=== PATIENT | male | born 1950 | race Caucasian/White ===

== ENCOUNTER 2019-12-14 16:34 | Emergency (ER) | payer OTHER ==
[~2019-12-14] VITALS: Ht 188 cm; Wt 97.1 kg
--- OUTSIDE RECORDS SUMMARY | ~2019-12-14 | XMS | Encounter Summary ---
Demographics + + + | Address | [address] | | | [place] [address] | + + + | Home Phone | | + + + | Preferred Language | Unknown | + + + | Marital Status | | + + + | Buddhism Affiliation | Unknown | + + + | Race | Unknown | + + + | Ethnic Group | Unknown | + + + Author + + + | Author | [facility] | | | and [place] | + + + | Organization | [facility] | | | and [place] | + + + | Address | Unknown | + + + | Phone | Unavailable | + + + Support + + +---------+ + | Name | Relationship | Address | Phone | + + +---------+ + | Yary Solis | ECON | Unknown | | + + +---------+ + | Shwetha Rhoades | ECON | Unknown | | + + +---------+ + Care Team Providers + +------+ + | Care Interface Developer Name | Role | Phone | + +------+ + | Tereza Turner MD | PCP | | + +------+ + Reason for Visit + + + | Reason | Comments | + + + | Follow-up, Office | 2 month | | Visit | | + + + Encounter Details +--------+---------+ + + + | Date | Type | Department | Care Team | Description | +--------+---------+ + + + | 03/05/ | Office | [facility] | Arleth Cabral | Paroxysmal atrial | | 2019 | Visit | CARDIOLOGY [place] | [address] | fibrillation (HCC) | | | | [address] | [address] | (Primary Dx); Mixed | | | | [address] | [place] [address] | hyperlipidemia; | | | | [place], [place] | [phone] | Agatston coronary | | | | [address] | | artery calcium score | | | | [phone] | | greater than 400; | | | | | | Ascending aorta | | | | | | dilatation (HCC); | | | | | | Essential | | | | | | hypertension; | | | | | | Intermittent | | | | | | palpitations; | | | | | | Bradycardia by | | | | | | electrocardiogram | +--------+---------+ + + + Social History + +-------+ +--------+------+ | Tobacco Use | Types | Packs/Day | Years | Date | | | | | Used | | + +-------+ +--------+------+ | Never Smoker | | | | | + +-------+ +--------+------+ + +---+---+---+ | Smokeless Tobacco: | | | | | Former User | | | | + +---+---+---+ + + +---------+ + | Alcohol Use | Drinks/Week | oz/Week | Comments | + + +---------+ + | Not Asked | 1 Cans of beer | 1.0 | Alcoholic | | | | | Drinks/day: | | | | | beer/wine/whiskey, | | | | | 1-2 3 times per | | | | | week | + + +---------+ + + + + | Sex Assigned at | Date Recorded | | | | + + + | Not on file | | + + + documented as of this encounter Last Filed Vital Signs + + + + + | Vital Sign | Reading | Time Taken | Comments | + + + + + | Blood Pressure | 128/74 | 03/05/2019 10:54 AM | | | | | PDT | | + + + + + | Pulse | 56 | 03/05/2019 10:54 AM | | | | | PDT | | + + + + + | Temperature | - | - | | + + + + + | Respiratory Rate | - | - | | + + + + + | Oxygen Saturation | 98% | 03/05/2019 10:54 AM | | | | | PDT | | + + + + + | Inhaled Oxygen | - | - | | | Concentration | | | | + + + + + | Weight | 98.9 kg (218 lb) | 03/05/2019 10:54 AM | | | | | PDT | | + + + + + | Height | 188 cm (6' 2") | 03/05/2019 10:54 AM | | | | | PDT | | + + + + + | Body Mass Index | 27.99 | 03/05/2019 10:54 AM | | | | | PDT | | + + + + + documented in this encounter Patient Instructions Patient Instructions Arleth Cabral FNP - 03/05/2019 11:00 AM PDTI have ordered you a 2 week event monitor , and should be put on here in [place] in about 7-10 days, I made no changes to medications See me back in 6 weeks Please bring your medication bottles to all clinic visits to help us maintain safe care for you, and ensure accurate medication record documented in this encounter Progress Notes Arleth Cabral FNP - 03/05/2019 11:00 AM PDTFormatting of this note might be differe nt from the original. Date of visit: 03/06/2019 Primary Care Physician: Tereza Turner MD CHIEF COMPLAINT: Chief Complaint Patient presents with Follow-up, Office Visit 2 month HISTORY OF PRESENT ILLNESS: Mr. Milan Solis is a 68 -year-old man who is here today for 2 month follow up on rasheeda ycardia after stopping metoprolol. He has a history of atrial fibrillation s/p cardioversion 04/2016 and maintained in SR sin ce with flecainide,hypertension, hyperlipidemia, coronary artery disease with a positive CT coronary calcium score of 509 with significant calcification to his RCA and moderate calcif ication to his left circumflex. His [id number] VASC score is 2 ( age HTN) and not on Eliquis since he has maintained sinus rh ythm, but remains anticoagulated on aspirin . I saw him last 01/08/2019 when I stopped his metoprolol XL 12.5 mg for ongoing bradycardia, and followed up with him about the results of his CMP and lipid panel, which are detailed christy cotter. His current and previous testing are detailed below. Today, I reviewed all previous documentation available to me in electronic medical recor d and from external sources. He reports today that he feels well, but since he has stopped metoprolol, he notices 3-4 e pisodes in the last month where he feels his heart beating much more strongly, but denies an y increase in rate, or any palpitations otherwise, or any accompanying symptoms, and seems t o occur at rest, but not with exertion. He has difficulty describing the sensation other th an saying it is a much stronger heartbeat than he normally has, and bothersome. He reports he has less frequent and more transient episodes of orthostatic lightheadedn ess when he bends over for too long since he has been off metoprolol., He denies any ch est pain, central or peripheral edema, dyspnea, dizziness,or syncope. He also denies any si gns or symptoms of stroke or transient ischemic attack. He denies any ER visits or hospitalization since last seen. He brought pictures of his medications to clinic today , and I reviewed personally. He reports he is drinking 1-2 beers per week, and caffeine consumption mild to moderat e, and has trying to be more active, and has noticed he has felt better. He also denies any use of marijuana since her noticed that it gave him palpitations previously. 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 He reports today that he is thinking of retiring next year. REVIEW OF SYSTEMS: Negative except for pertinent items noted in HPI. Constitutional: Denies fatigue or unexplained weight loss. Appetite is good. Weight is st able. Denies night sweats fevers or chills HENT: Denies nosebleeds. Denies hearing problems. Denies dysphagia Eyes: Denies visual disturbance or double vision. Denies history of cataracts or glaucoma or macular degeneration. Respiratory/Sleep:: History allergic rhinitis, hay fever Denies cough and shortness of jero th. Denies hemoptysis or excessive sputum production. Denies snoring, orthopnea, PND. Cardiovascular: Denies chest pain, palpitations and leg swelling. Denies history of rheuma tic fever. Denies claudication . Gastrointestinal: History of GERD, on ranitidine. Denies history of gastroesophageal reflu x disease . Denies nausea, vomiting, abdominal pain and blood in stool. Genitourinary: History of prostatectomy, prostate cancer no radiation or chemotherapy. Den ies hematuria. Musculoskeletal: C/o joint pain Denies myalgias, back pain Skin: Denies color change. Denies rash or lesions Neurological: Denies history of stroke/Transient ischemic attack.Denies history of seizures . Denies dizziness, syncope and numbness. Denies focal motor or sensory deficits Hematological/Oncology Does not bruise/bleed easily. 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 Denies excessive thirst or hunger. Psychiatric/Behavioral: The patient denies any history of depression or anxiety or other ps ychiatric illness. Vaccines: Current on 2018 flu vaccine. Current on pneumonia vaccine. Habits/Social : Denies history of smoking. EtOH use beer occasionally .Drinks 1 servings of caffeine (iced tea/hot tea) daily . Denies recreational or illicit drug use Exercises with a cane, golf and tolerates. 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 Outpatient Medications Prior to Visit Medication Sig Dispense Refill aspirin 81 MG tablet Take 81 mg by mouth daily. atorvaSTATin (LIPITOR) 10 mg tablet Take 1 tablet by mouth nightly. (Patient taking dif ferently: Take 20 mg by mouth nightly.) 90 tablet 3 esomeprazole (NEXIUM) 20 mg capsule Take 20 mg by mouth every morning (before breakfast ). flecainide (TAMBOCOR) 100 mg tablet TAKE 1 TABLET TWICE A DAY 180 tablet 3 nitroglycerin (NITROSTAT) 0.[address] 1 tablet under the tongue every 5 (fiv e) minutes as needed for Chest pain. 25 tablet 3 raNITIdine (ZANTAC) 75 MG tablet Take 150 mg by mouth 2 (two) times daily. Takes 75 mg At night , and 150 mg qhs (Patient taking differently: Take 150 mg by mouth as needed.) No facility-administered medications prior to visit. PHYSICAL EXAM: Wt Readings from Last 3 Encounters: 03/05/19 98.9 kg (218 lb) 04/19/16 97.1 kg (214 lb) 07/20/15 100.8 kg (222 lb 3.2 oz) Temp Readings from Last 3 Encounters: 04/19/16 36.8 C (98.2 F) BP Readings from Last 3 Encounters: 03/05/19 128/74 04/19/16 129/72 07/20/15 134/68 Pulse Readings from Last 3 Encounters: 03/05/19 56 04/19/16 60 07/20/15 64 Vital signs: 01/08/2019 wt: 221 Lbs. BP: 134/68 . HR. 47 Vital signs: 06/30/2018 wt: 218 Lbs. BP: 134/68 . HR. 46 Vital signs: 08/12/2017 wt: 222 Lbs. BP: 122/78 . HR. 76. GENERAL: Well developed, well nourished, in no distress. Appears approximately stated age . HEENT: Normocephalic, atraumatic. EYES: PERRL, EOM normal. MOUTH: Oral mucosae moist, dentition adequate, no lesions noted NECK: No JVD, lymphadenopathy, thyromegaly, bruits. Carotid pulses are 2+ bilaterally LUNGS/CHEST: Clear bilaterally, with no rales, rhonchi or wheezing noted, respirations unl abored HEART: Nondisplaced PMI, slow rate and rhythm, S1, S2 normal. No murmurs, rubs or gallops noted. ABDOMEN: Soft, nontender, no organomegaly, masses or bruits. Bowel sounds are normal in a ll 4 quadrants. The abdominal aortic pulsation is not palpable. EXTREMITIES: No edema. Radial pulses 2+ bilaterally. Femoral pulses are 2+ bilaterally wi thout bruits. DP and PT pulses are 2+ bilaterally. No clubbing. SKIN: Warm and dry, capillary refill is normal, no lesions. NEUROLOGIC: Awake, alert and oriented x 3. No focal motor or sensory deficits. PSYCHIATRIC: Appropriate, affect appears normal DATA: Blood tests: No results found for: WBC, RBC, HGB, HCT, PLT No results found for: NA, K, CL, CO2, ANIONGAP, GLUF, BUN, CREATININE, BCR, EGFR No results found for: CHOL, TRIG, LDL, LDL, GLUF No results found for: BNP, TSH, CRP No results found for: TOTEPI CT Coronary Calcium: 06/07/2015: Calcium Score 509. Significant calcification in the RCA, moderate calcification LCx. Last Stress Test, 08/15/2015 ([facility]): Lexiscan, perfusion images NML, LVEF 60%. ECHO: Last Echo: 06/04/2018: ([facility]): Resting bradycardia. Technically adequate study. EF 60-65 p ercent. LV normal in size and wall thickness. No regional wall motion abnormalities. Norm al diastolic function for age. RV normal in size and function. Normal size atria. Aortic valve trileaflet, no aortic regurgitation or stenosis. Mitral valve normal, no MR. Tricusp id valve normal, pulmonary pressures not assessed due to absence of TR jet. Trace PI. No s ignificant valvular pathology. No pericardial or pleural effusion. IVC WNL, CVP 0-5. Asce nding aorta is dilated measuring up to 4.2 cm Echo, 04/04/2016: LVEF 60-65%, moderate LAE (49mm PSLAx), trace AI, trace MR, trace TR, tr raphael PI, Aortic root 39mm, atherosclerosis present. EKG/EVENT MONITOR ECG,03/28/2016 (Dr Moore): A fib (80bpm), LAFB, incomplete RBBB pattern, non-spec ST-T [place] es. EK05/07: Sinus bradycardia with bifascicular block Rate 56 bpm, NY 184 ms, QRS 1 64 ms, QTC 480 ms EK02/07: Sinus bradycardia, left axis deviation, nonspecific IV block. Rate 45 bpm , NY 202 ms, QRS 126 ms, QTC 430, tracing reviewed by az EK08/12/2017: ( flecainide 100 mg BID,Toprol-XL 12.5 mg daily) Normal sinus rhythm, left axis deviation, nonspecific IV block. Rate 61 bpm, NY 188 ms, QRS 1:30 milliseconds, QTC 46 9 ms, tracing personally reviewed by az EK06/30/2018:( flecainide 100 mg BID, Toprol-XL 25 mg daily )Sinus bradycardia, nonspecif ic IV block. Rate 46 bpm, NY 194 ms, QRS 130 ms, QTC 427 ms tracing personally reviewed by az EK01/08/2019:(flecainide 100 mg BID, Toprol-XL 12.5 mg daily ) sinus bradycardia, nonspec ific IV conduction delay. First degree AV block. Rate 47 bpm, NY 204 ms, QRS 122 ms, QTC 4 19 Hernandez personally reviewed by me, and compared to EKG performed in June, now has first- degree AV block, otherwise similar morphology EK03/05/2019: sinus bradycardia nonspecific IV block, rate 51 bpm, NY 192 ms, QRS 130 ms , QTC 457 ms, tracing personally reviewed by me, and compared to previous EKG performed in tashi2018, first-degree AV block has resolved, and improved heart rate. LABS: Labs: 03/28/2016 liver enzymes WNL, sodium 137, potassium 3.9, BUN 17, creatinine 0.9, GFR 35. Magnesium 1.9, TSH 3.03. CK 65 hemoglobin 16.5, hematocrit 48.7, platelets 177 Labs: 2015: Total cholesterol 119, triglycerides 76, LDL 65, VLDL 15, ratio 3.1, non-HD L cholesterol 80. Sodium 137, potassium 3.9, chloride 104, glucose 94, BUN 17, creatinine 0 .73, GFR 108, AST 21, ALT 38, alk phos 53, total bilirubin 1.4. WBC 5.9, hemoglobin 16.3, h ematocrit 47.6, platelets 152 ESR 0 Labs: 2017: Lipids: (atorvastatin 10 mg) Cholesterol 110, triglycerides 85, HDL 38.5, LDL 55, VLDL 17, ratio 2.9, non-HDL cholesterol 72. CMP: Sodium 137, potassium 4, chloride 99, glucose 90, BUN 16, creatinine 0.88, AST 20, ALT 32, alk phos 57, total bilirubin 1.2, GFR 87, albumin 4.3. PSA <0.014. CBC: WBC 5.7, hemoglobin 16.1, hematocrit 40.7, platelets 154 Labs: 01/08/2019: Lipids: (Atorvastatin 10 mg): Cholesterol 127, triglycerides 269, HDL 38, LDL 35. CMP: Sodium 139, potassium 4, chloride 105, glucose 85, BUN 17, creatinine 0.78, T 17, ALT 18, alk phos 55, total bili 1.1, GFR 99, albumin 3.9. CBC: WBC 6.4, RBC 5.22, hem oglobin 15.7, hematocrit 46.7, platelets 188. @ASSESSMENTPLANBEGIN@ ASSESSMENT & PLAN: He was here today for 2 month follow up on bradycardia after stopping metoprolol. He has problems as detailed below. His EKG performed in the clinic today again shows improved sinus bradycardia at 51 bpm ,with resolution of first degree AV block , and his QTC is acceptable for his flecainide t herapy He is asymptomatic for any dizziness., but reports episodes of very strong heartbeats, whi aleksander he finds difficult to describe, but finds bothersome, but thinks rate is regular, and no other symptoms besides increased anxiety. I discussed the results of his EKG in detail with him and he remains bradycardic without metoprolol, with symptoms as described I will order an event monitor, and send him to electrophysiology for further consultation if indicated after I see results . I made no changes to cardiac medications today, and he should continue Atorvastatin 20 mg qhs for hyperlipidemia, aspirin 81 mg daily for coronary artery disease,and flecainide 100 mg bid to maintain sinus rhythm. I may need to start him on losartan if blood pressure increases without metoprolol, but wi ll wait until I see him back.. He has remained off Eliquis as he has maintained sinus rhythm, but we have previously dis cussed he would need to go back on it for atrial fibrillation. I will continue to monitor ascending aorta dilation with serial Echo's , and would also or loraine him a baseline abdominal US for AAA screening when I ordered his Echo next year in 2019. Is scheduled to be set up on his 2-week event monitor on March 23, and I will follow-up wi th him on March 27 about the results. I will order his updated echo, and baseline abdominal ultrasound for AAA screening whe n I see him back. 1. Paroxysmal atrial fibrillation (HCC) 2. Mixed hyperlipidemia 3. Agatston coronary artery calcium score greater than 400 4. Ascending aorta dilatation (HCC) 5. Essential hypertension 6. Intermittent palpitations 7. Bradycardia by electrocardiogram Orders Placed This Encounter Procedures ECG 12 lead Event monitor - 2 week The following portions of the patient's history were personally reviewed by me and updated as appropriate: EKG tracings, other specialty provider and PCP notes,any Hospital admission and discharge summaries, any ER records , current and previous cardiac testing and procedure reports and d keyur, , medication bottle pictures brought to visit today personally reviewed by me. Allergies, current medications.labs Family history, past medical history, past social history, past surgical history. Problem list. Talha ANGEL [facility] 03/06/2019 docume nted in this encounter Plan of Treatment +--------+---------+ + + + | Date | Type | Specialty | Care Team | Description | +--------+---------+ + + + | 02/23/ | Office | Cardiology | Srinivas Robledo, | | | 2019 | Visit | | MD [address] | | | | | | [address] [place], [place] | | | | | | [id number] | | | | | | | | +--------+---------+ + + + + +------+--------+ + + | Name | Type | Priori | Associated Diagnoses | Order Schedule | | | | ty | | | + +------+--------+ + + | Event monitor - 2 | ECG | Routin | Paroxysmal atrial | Expected: | | week | | e | fibrillation (HCC) | 03/12/2019, Expires: | | | | | Intermittent | 03/05/2020 | | | | | palpitations | | | | | | Bradycardia by | | | | | | electrocardiogram | | + +------+--------+ + + documented as of this encounter Procedures + +--------+ + + + | Procedure Name | Priori | Date/Time | Associated Diagnosis | Comments | | | ty | | | | + +--------+ + + + | ECG 12 LEAD | Routin | 03/05/2019 | Paroxysmal atrial | Results for this | | | e | 11:03 AM | fibrillation (HCC) | procedure are in the | | | | PDT | Mixed hyperlipidemia | results section. | | | | | [place]at[place] coronary | | | | | | artery calcium score | | | | | | greater than 400 | | | | | | Ascending aorta | | | | | | dilatation (HCC) | | | | | | Essential | | | | | | hypertension | | + +--------+ + + + documented in this encounter Results ECG 12 lead (03/05/2019 11:03 AM PDT) + + + + + + | Component | Value | Ref Range | Performed | Pathologist | | | | | At | Signature | + + + + + + | VENTRICULAR | 51 | BPM | [facility] | | | RATE EKG | | | | | + + + + + + | ATRIAL RATE | 51 | BPM | [facility] | | + + + + + + | P-R | 192 | ms | [facility] | | | INTERVAL | | | | | + + + + + + | QRS | 130 | ms | [facility] | | | DURATION | | | | | + + + + + + | Q-T | 496 | ms | [facility] | | | INTERVAL | | | | | + + + + + + | Q-T | 457 | ms | [facility] | | | INTERVAL | | | | | | (CORRECTED) | | | | | + + + + + + | P WAVE AXIS | 52 | degrees | [facility] | | + + + + + + | QRS AXIS | -64 | degrees | [facility] | | + + + + + + | T AXIS | 23 | degrees | [facility] | | + + + + + + | INTERPRETAT | Please refer to | | [facility] | | | ION TEXT | Providers office visit | | | | | | note for Providers | | | | | | Interpretation.Confirmed | | | | | | by [facility] Read Only, | | | | | | [facility] ([id number]), | | | | | | editorial project manager Jake Hernadez | | | | | | ([id number]) on 03/05/2019 | | | | | | 3:16:33 PM | | | | + + + + + + + + | Specimen | + + | | + + + + + | Narrative | Performed At | + + + | | | + + + + +---------+ + + | Performing | Address | City/State/Zipcode | Phone Number | | Organization | | | | + +---------+ + + | [facility] | | | | + +---------+ + + documented in this encounter Visit Diagnoses + + | Diagnosis | + + | Paroxysmal atrial fibrillation (HCC) - Primary Atrial fibrillation | + + | Mixed hyperlipidemia | + + | [place]at[place] coronary artery calcium score greater than 400 Nonspecific (abnormal) | | findings on radiological and other examination of other intrathoracic organs | + + | Ascending aorta dilatation (HCC) Thoracic aortic ectasia | + + | Essential hypertension Unspecified essential hypertension | + + | Intermittent palpitations | + + | Bradycardia by electrocardiogram Other specified cardiac dysrhythmias | + + documented in this encounter
--- OUTSIDE RECORDS SUMMARY | ~2019-12-14 | XMS | Encounter Summary ---
Demographics + + + | Address | [address] | | | [place] [address] | + + + | Home Phone | | + + + | Preferred Language | Unknown | + + + | Marital Status | | + + + | Rastafari Affiliation | Unknown | + + + | Race | Unknown | + + + | Ethnic Group | Unknown | + + + Author + + + | Author | [facility] | | | and [place] | + + + | Organization | [facility] | | | [...] Team Providers + +------+ + | Care Piece Marker [employer] Name | Role | Phone | + +------+ + | Tereza Turner MD | PCP | | + +------+ + Reason for Visit +--------+ + | Reason | Comments | +--------+ + | Other | 2 week event monitor | +--------+ + Encounter Details +--------+ + + + + | Date | Type | Department | Care Team | Description | +--------+ + + + + | 03/23/ | Clinical | [facility] | Arleth Cabral | Paroxysmal atrial | | 2019 | Support | CARDIOLOGY [place] | [address] | fibrillation (HCC); | | | | [address] | [address] | Intermittent | | | | [address] | [place] [address] | palpitations; | | | | [place], [place] | [phone] | Bradycardia by | | | | [address] | | electrocardiogram | | | | [phone] | | | +--------+ + + + + Social History + +-------+ [...] + + documented as of this encounter Progress Shy Kingsley CMA - 03/23/2019 2:30 PM PDT2 week cardiac event monitor placed on patie nt. EOB/Billing information discussed. Instructions given and understood.Electronically sign ed by Shy Leroy CMA at 03/23/2019 2:46 PM PDTdocumented in this encounter Plan of Treatment +--------+---------+ + + + | Date | Type | Specialty | Care Team | Description | +--------+---------+ + + + | 02/23/ | Office | Cardiology | Srinivas Robledo, | | | 2019 | Visit | | MD [address] | | | | | | [place] | | | | | | [address] | | | | | | | | +--------+---------+ + + + documented as of this encounter Visit Diagnoses + + | Diagnosis | + + | Paroxysmal atrial fibrillation (HCC) Atrial fibrillation | + + | Intermittent palpitations | + + | Bradycardia by electrocardiogram Other specified cardiac dysrhythmias | + + documented in this encounter"
--- OUTSIDE RECORDS SUMMARY | ~2019-12-14 | XMS | Encounter Summary ---
Demographics + + + | Address | [address] | | | [place] [address] | + + + | Home Phone | | + + + | Preferred Language | Unknown | + + + | Marital Status | | + + + | Quaker Affiliation | Unknown | + + + | Race | Unknown | + + + | Ethnic Group | Unknown | + + + Author + + + | Author | [facility] | | | and [place] | + + + | Organization | [facility] | | | [...] Team Providers + +------+ + | Care Security Sales Consultant Name | Role | Phone | + +------+ + | Tereza Turner MD | PCP | | + +------+ + Encounter Details +--------+ + + + + | Date | Type | Department | Care Team | Description | +--------+ + + + + | 01/30/ | Orders Only | [facility] | Arleth Cabral | Paroxysmal atrial | | 2019 | | CARDIOLOGY [place] | [address] | fibrillation (HCC); | | | | [address] | [address] | Atherosclerotic | | | | [address] | [place] [address] | heart disease of | | | | [place], [place] | [phone] | [place] coronary | | | | [address] | | artery without | | | | [phone] | | angina pectoris; | | | | | | Mixed hyperlipidemia | +--------+ + + + + Social History + +-------+ +--------+------+ | Tobacco Use | Types | Packs/Day | Years | Date | | | | | Used | | + +-------+ +--------+------+ | Never Smoker | | | | | + +-------+ +--------+------+ + + + | Sex Assigned at | Date Recorded | | | | + + + | Not on file | | + + + documented as of this encounter Plan of Treatment +--------+---------+ + + + | Date | Type | Specialty | Care Team | Description | +--------+---------+ + + + | 02/23/ | Office | Cardiology | Srinivas Robledo, | | | 2019 | Visit | | MD [address] | | | | | | [place] | | | | | | [address] | | | | | | | | +--------+---------+ + + + + +------+--------+ + + | Name | Type | Priori | Associated Diagnoses | Order Schedule | | | | ty | | | + +------+--------+ + + | Comprehensive | Lab | Routin | Paroxysmal atrial | Expected: | | Metabolic Panel | | e | fibrillation (HCC) | 06/30/2018, Expires: | | | | | Atherosclerotic | 12/29/2019 | | | | | heart disease of | | | | | | [place] coronary | | | | | | artery without | | | | | | angina pectoris | | | | | | Mixed hyperlipidemia | | + +------+--------+ + + | Lipid Panel | Lab | Routin | Mixed | Expected: | | | | e | hyperlipidemia | 06/30/2018, Expires: | | | | | | 12/29/2019 | + +------+--------+ + + documented as of this encounter Visit Diagnoses + + | Diagnosis | + + | Paroxysmal atrial fibrillation (HCC) Atrial fibrillation | + + | Atherosclerotic heart disease of [place] coronary artery without angina pectoris | | Coronary atherosclerosis of [place] coronary artery | + + | Mixed hyperlipidemia | + + documented in this encounter"
--- OUTSIDE RECORDS SUMMARY | ~2019-12-14 | XMS | Encounter Summary ---
Demographics + + + | Address | [address] | | | [place] [address] | + + + | Home Phone | | + + + | Preferred Language | Unknown | + + + | Marital Status | Single | + + + | Presybeterian Affiliation | Unknown | + + + | Race | White | + + + | Ethnic Group | Not or | + + + Author + + + | Author | [facility] | + + + | Organization | [facility] | + + + | Address | Unknown | + + + | Phone | Unavailable | + + + Support + + +---------+ + | Name | Relationship | Address | Phone | + + +---------+ + | None None | ECON | Unknown | Unavailable | + + +---------+ + | Yary Solis | ECON | Unknown | | + + +---------+ + Care Team Providers + +------+ + | Care Marketing Planner Name | Role | Phone | + +------+ + PCP | Unavailable | + +------+ + Encounter Details +--------+ + + + + | Date | Type | Department | Care Team | Description | +--------+ + + + + | 12/01/ | Joint Maker Machine | Urology at [facility] | [place], | Malignant neoplasm | | 2012 | | [address] | Brandon Hinton MD | of prostate (HCC) | | | | Mailcode: [place] | [address] | (Primary Dx) | | | | for Health and | [facility] [place], | | | | | [facility] | [place] [address] | | | | | [place], [place] | [phone] | | | | | [address] | | | | | | [phone] | | | +--------+ + + + + Social History + +-------+ +--------+------+ | Tobacco Use | Types | Packs/Day | Years | Date | | | | | Used | | + +-------+ +--------+------+ | Never Assessed | | | | | + +-------+ +--------+------+ + + + | Sex Assigned at | Date Recorded | | | | + + + | Not on file | | + + + + + + + | Job Start Date | Occupation | Industry | + + + + | Not on file | Not on file | Not on file | + + + + + + + + | Travel History | Travel Start | Travel End | + + + + + + | No recent travel history available. | + + documented as of this encounter Plan of Treatment Not on filedocumented as of this encounter Procedures + +--------+ + + + | Procedure Name | Priori | Date/Time | Associated Diagnosis | Comments | | | ty | | | | + +--------+ + + + | PATHOLOGY CONSULT - | Routin | 11/13/2012 | Malignant neoplasm | Results for this | | REVIEW OUTSIDE | e | | of prostate (HCC) | procedure are in the | | SLIDES | | | | results section. | + +--------+ + + + documented in this encounter Results PATHOLOGY CONSULT - REVIEW OUTSIDE [facility]ID[facility] (11/13/2012) + + + + + + | Component | Value | Ref Range | Performed | Pathologist | | | | | At | Signature | + + + + + + | PATHOLOGY | SOURCE OF SPECIMEN:A | | [facility] | | | CONSULT - | Multiple specimens, A to | | DEPARTMENT | | | SLIDES | F, Q to R | | OF | | | | Materials | | PATHOLOGY | | | | Received:Referring | | | | | | Institution: [facility] | | | | | | [facility] [place], | | | | | | [place] [id number] | | | | | | Accession Number: | | | | | | [id number] | | | | | | Collection Date: | | | | | | 11/13/2012Sublabeled | | | | | | | | | | | | H&E IHCA | | | | | | to F, Q to R | | | | | | 8 | | | | | | 1 Final | | | | | | Pathologic | | | | | | Diagnosis:Prostate, | | | | | | biopsies ([id number], | | | | | | 11/13/2012, sublabeled | | | | | | A-F and Q-R, | | | | | | [employer], [place] | | | | | | City, | | | | | | [place]):Prostate, left | | | | | | base, needle core | | | | | | biopsy (sublabeled A): | | | | | | - Small focus of | | | | | | atypical glands | | | | | | suspicious but not | | | | | | diagnostic | | | | | | ofadenocarcinoma, see | | | | | | note Note: | | | | | | Outside reviewed | | | | | | immunohistochemical | | | | | | stains CK-903, p63, and | | | | | | [id number](racemase) confirm | | | | | | results as suspicious | | | | | | but not diagnostic | | | | | | ofadenocarcinoma of the | | | | | | prostate. | | | | | | Prostate, left mid, | | | | | | needle core biopsy | | | | | | (sublabeled B): - | | | | | | Prostate with no | | | | | | evidence of prostatic | | | | | | adenocarcinomaProstate, | | | | | | left apex, needle core | | | | | | biopsy (sublabeled C): | | | | | | - Prostatic | | | | | | adenocarcinoma, [place] | | | | | | score 3 + 4 = 7 - | | | | | | Adenocarcinoma is | | | | | | approximately 30% of the | | | | | | total biopsy length, | | | | | | andadenocarcinoma is | | | | | | approximately 0.7 cm in | | | | | | lengthProstate, right | | | | | | base, needle core biopsy | | | | | | (sublabeled D): - | | | | | | No evidence of | | | | | | malignancy - Focal | | | | | | atrophy and chronic | | | | | | inflammationProstate, | | | | | | right mid, right apex, | | | | | | needle core biopsies | | | | | | (sublabeled E and F): | | | | | | - Benign prostate | | | | | | tissue with focal | | | | | | chronic inflammation and | | | | | | noevidence of | | | | | | malignancyProstate, R | | | | | | transition zone, needle | | | | | | core biopsy (sublabeled | | | | | | R): - Benign | | | | | | prostate tissue, focal | | | | | | chronic | | | | | | inflammationProstate, L | | | | | | transition zone, needle | | | | | | core biopsy (sublabeled | | | | | | Q): - Benign | | | | | | prostate tissue with | | | | | | focal chronic | | | | | | inflammation Case | | | | | | seen by:Macho Owusu, | | | | | | MRhiannon/pathologistThe | | | | | | slides will be returned | | | | | | at a later | | | | | | dateT:12/09/2012/rdl | | | | | | Clinical History:The | | | | | | patient is a 62-year-old | | | | | | man with reported | | | | | | outside PSA of 6.89. | | | | | | My electronic | | | | | | signature indicates that | | | | | | I have personally | | | | | | reviewed alldiagnostic | | | | | | slides, the gross and/or | | | | | | microscopic portion of | | | | | | thisreport and | | | | | | formulated the final | | | | | | diagnosis. | | | | | | Rendering Diagnostician: | | | | | | Macho Owusu | | | | | | MRhiannonPathologistElectroni | | | | | | omar Signed 12/09/2012 | | | | | | 12:55PM | | | | + + + + + + + + | Specimen | + + | | + + + + + + + | Performing | Address | City/State/Zipcode | Phone Number | | Organization | | | | + + + + + | [facility] | [address] | [place] [address] | | | PATHOLOGY | [address] | | | + + + + + documented in this encounter Visit Diagnoses + + | Diagnosis | + + | Malignant neoplasm of prostate (HCC) - Primary Malignant neoplasm of prostate | + + documented in this encounter"
--- OUTSIDE RECORDS SUMMARY | ~2019-12-14 | XMS | Encounter Summary ---
Demographics + + + | Address | [address] | | | [place] [address] | + + + | Home Phone | | + + + | Preferred Language | Unknown | + + + | Marital Status | | + + + | Anabaptist Affiliation | Unknown | + + + | Race | Unknown | + + + | Ethnic Group | Unknown | + + + Author + + + | Author | [facility] | | | and [place] | + + + | Organization | [facility] | | | [...] Team Providers + +------+ + | Care Bench Lathe Operator Name | Role | Phone | + +------+ + | Tereza Turner MD | PCP | | + +------+ + Encounter Details +--------+ + + + + | Date | Type | Department | Care Team | Description | +--------+ + + + + | 06/26/ | Orders Only | [facility] | Arleth Cabral | | | 2018 | | CARDIOLOGY [place] | [address] | | | | | [address] | [address] | | | | | [address] | [place] [address] | | | | | [place] | [phone] | | | | | [address] | | | | | | [phone] | | | +--------+ + + + [...] [place] | | | | | | [address] | | | | | | | | +--------+---------+ + + + documented as of this encounter Visit Diagnoses Not on filedocumented in this encounter"
--- OUTSIDE RECORDS SUMMARY | ~2019-12-14 | XMS | Encounter Summary ---
Demographics + + + | Address | [address] | | | [place] [address] | + + + | Home Phone | | + + + | Preferred Language | Unknown | + + + | Marital Status | | + + + | Yazidism Affiliation | Unknown | + + + | Race | Unknown | + + + | Ethnic Group | Unknown | + + + Author + + + | Author | [facility] | | | and [place] | + + + | Organization | [facility] | | | [...] Team Providers + +------+ + | Care Burling And Joining Supervisor Name | Role | Phone | + +------+ + | Tereza Turner MD | PCP | | + +------+ + Encounter Details +--------+ + + + + | Date | Type | Department | Care Team | Description | +--------+ + + + + | 04/19/ | Orders Only | [facility] | Srinivas Robledo, | | | 2016 | | CARDIOLOGY [place] | MD [address] | | | | | [address] | [place], [place] | | | | | [place], [place] | [address] | | | | | [address] | | | | | | [phone] | | | +--------+ + + + [...] [place] | | | | | | [address] | | | | | | | | +--------+---------+ + + + documented as of this encounter Visit Diagnoses Not on filedocumented in this encounter"
--- OUTSIDE RECORDS SUMMARY | ~2019-12-14 | XMS | Encounter Summary ---
Demographics + + + | Address | [address] | | | [place] [address] | + + + | Home Phone | | + + + | Preferred Language | Unknown | + + + | Marital Status | | + + + | Baptism Affiliation | Unknown | + + + | Race | Unknown | + + + | Ethnic Group | Unknown | + + + Author + + + | Author | [facility] | | | and [place] | + + + | Organization | [facility] | | | and [place] | + + + | Address | Unknown | + + + | Phone | Unavailable | + + + Support + + +---------+ + | Name | Relationship | Address | Phone | + + +---------+ + | aYry Solis | ECON | Unknown | | + + +---------+ + | Shwetha Rhoades | ECON | Unknown | | + + +---------+ + Care Team Providers + +------+ + | Care Freight Broker Agent Name | Role | Phone | + +------+ + PCP | Unavailable | + +------+ + Encounter Details +--------+ + + + + | Date | Type | Department | Care Team | Description | +--------+ + + + + | 04/19/ | Hospital | [facility] | Conversion | Paroxysmal atrial | | 2016 | Encounter | CENTER CV INTRA OP | Transaction, | fibrillation (HCC) | | | | [address] | Provider Unknown | | | | | [place], [place] | [phone] | | | | | [address] | | | | | | [phone] | Luis Carlos Escobar | | | | | | MD [address] | | | | | | [address] | | | | | | [place] [address] | | | | | | [phone] | | | | | | | | +--------+ + + + [...] + + + | Blood Pressure | 129/72 | 04/19/2016 5:04 PM | | | | | PDT | | + + + + + | Pulse | 60 | 04/19/2016 5:04 PM | | | | | PDT | | + + + + + | Temperature | 36.8 C (98.2 F) | 04/19/2016 5:04 PM | | | | | PDT | | + + + + + | Respiratory Rate | 16 | 04/19/2016 5:04 PM | | | | | PDT | | + + + + + | Oxygen Saturation | - | - | | + + + + + | Inhaled Oxygen | - | - | | | Concentration | | | | + + + + + | Weight | 97.1 kg (214 lb) | 04/19/2016 5:04 PM | | | | | PDT | | + + + + + | Height | 188 cm (6' 2") | 04/19/2016 5:04 PM | | | | | PDT | | + + + + + | Body Mass Index | 27.48 | 04/19/2016 5:04 PM | | | | | PDT | | + + + + + documented in this encounter Medications at Time of Discharge + + + +---------+ + + | Medication | Sig | Dispensed | Refills | Start | End Date | | | | | | Date | | + + + +---------+ + + | raNITIdine | Take 150 mg by mouth | | 0 | 07/20/19 | | | (ZANTAC) 75 MG | 2 (two) times | | | 16 | 9 | | tablet | daily. Takes 75 mg | | | | | | | At night , and 150 | | | | | | | mg qhs | | | | | + + + +---------+ + + documented as of this encounter Progress Notes Conversion Transaction, Provider Unknown - 04/19/2016 5:12 PM PDTFormatting of this note m ight be different from the original. Nurse Progress Note by Uriel Juarez RN at 04/19/161711 Author: Uriel Juarez RN Service: (none) Author Type: Registered Nurse Filed: 04/19/161712 Date of Service: 04/19/161711 Status: Signed Steam Conditioner Filling: Uriel Juarez RN (Registered Nurse) Pt given discharge instructions with at bedside. All questions answered to pt's satisf action. IV was removed with tip intact. Guaze/coban placed. Pt dressed self and assisited ou t to POV via WC. docume nted in this encounter H&P Notes Srinivas Robledo MD - 04/19/2016 4:08 PM PDTFormatting of this note might be different f rom the original. H&P by Srinivas Robledo MD at 04/19/16 1608 Author: Srinivas Robledo MD Service: Cardiology Author Type: Physician Filed: 04/19/16 1611 Date of Service: 04/19/16 1608 Status: Signed Steam Conditioner Filling: Srinivas Robledo MD (Physician) [facility] Service: Cardiology Pre-Operative History & Physical Interval Update Mr. Venu Solis presented for the prescheduled CV. For details regarding the present ation kindly refer to Dr. Escobar notes. Patient was seen and examined, consent was obtained. Has been on anticoagulation for 2 weeks only secondary to atrial fibrillation. Srinivas Robledo MD 04/19/2016 4:09 PM *CORE MEASURES REMINDER: If the patient has a known or suspected infection prior to surger y, please add diagnosis to the problem list (consider: Infection 136.9). Expand All Collapse All Venu Solis 1950 Date of Service: 04/05/2016 Chief Complaint: Chief Complaint Patient presents with Referral A-Fib per Dr. 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 65yo WM, who wasn't feeling well at couple weeks ago, p resented to PCP, found to be in atrial fibrillation. This is a new cardiac arrhythmia for this patient, no previous documentation of atrial fibrillation. He was started on Eliquis. He is usually active, but lately he is experiencing exertional shortness of breath especi ally when he climbs up hills. He exercises on a regular basis, 4-5times/weekly. With mor e strenuous activity, he notices shortness of breath, a vague sensation of chest, not necess arily pain, occasional skipped beats, but no nausea diaphoresis, no syncope. He does not h ave any orthopnea, PND, edema, or symptoms at rest. There is no prior history of myocardia l infarction, congestive heart failure, congenital heart disease, rheumatic heart disease, s yncope. His workup to date includes CT coronary calcium score. A recent Lexiscan nuclear perfusion study shows normal perfusion, normal ejection fraction. A recent echocardiogram shows normal ejection fraction, no significant valvular heart disease, no pericardial effus ion, however the left atrium is moderately enlarged (49 mm parasternal long axis). He does not feel well in atrial fibrillation, his blood pressure is borderline, today we DC'd his l osartan. He states that in the evenings when he is laying down he notices his heart beatin g quite irregularly, sometimes fast, sometimes slow. We elected to put him on a low dose o f metoprolol succinate, 25 mg nightly. He does not want to wait another 3 weeks for electi ve cardioversion, we did discuss the possibility of MIGUEL guided cardioversion, he is in favor of this. Risks and benefits explained, will try to arrange MIGUEL guided cardioversion in e near future. Hx CABG: no Hx PCI/stent: no Hx Pacemaker/ICD: no Last Cath: na. CT Coronary Calcium, 06/07/2015: Calcium Score 509. Significant calcific ation in the RCA, moderate calcification LCx. Last Echo, 04/04/2016: LVEF 60-65%, moderate LAE (49mm PSLAx), trace AI, trace MR, trace TR , trace PI, Aortic root 39mm, atherosclerosis present. Last Stress Test, 08/15/2015 ([facility]): Lexiscan, perfusion images NML, LVEF 60%. ECG,03/28/2016 (Dr Moore): A fib (80bpm), LAFB, incomplete RBBB pattern, non-spec ST-T escamilla es. Paroxysmal atrial fibrillation (HCC) A fib, CVR, CHADS2 Score 1 (HTN), new diagnosis, on Eliquis. Denies any new visual distur bances, dysarthria, dysphasia, lateralizing signs or symptoms. No significant bleeding or bruising. Labs reviewed. Recent echocardiogram negative for pericardial effusion or sign ificant valvular heart disease. LVEF normal, left atrium moderately enlarged. Lab, 03/28/2016: TSH: 3.03, Trop-T: <0.010, CPK: 65 Liver enzymes NML, K: 3.9, BUN/Cr: 1 7/0.9, glu: 85, M.9 WBC: 6.3, H/H: 16.5/48.7, plt: 177 HTN (hypertension) Hypertension, borderline low, will DC losartan, change to low dose beta patrick, metoprolol succinate 25 mg daily. Hyperlipemia Hyperlipidemia, nonpharmacological therapy can be attempted, however, with his coronary lashay cification, aggressive medical therapy is reasonable, targeting LDL cholesterol less than 70 , statin therapy appropriate. F/U with GABRIELLA MOORE, RTC Return in about 1 month (around 05/06/2016), or if symptoms worse n or fail to improve.. SUBJECTIVE: 65yo WM, who wasn't feeling well at couple weeks ago, presented to PCP, found to be in atri al fibrillation. This is a new cardiac arrhythmia for this patient, no previous documentat ion of atrial fibrillation. He was started on Eliquis. He is usually active, but lately he is experiencing exertional shortness of breath especially when he climbs up hills. He e xercises on a regular basis, 4-5times/weekly. With more strenuous activity, he notices miguel rtness of breath, a vague sensation of chest, not necessarily pain, occasional skipped beats , but no nausea diaphoresis, no syncope. He does not have any orthopnea, PND, edema, or sy mptoms at rest. There is no prior history of myocardial infarction, congestive heart failu re, congenital heart disease, rheumatic heart disease, syncope. His workup to date include s CT coronary calcium score. A recent Lexiscan nuclear perfusion study shows normal perfus ion, normal ejection fraction. A recent echocardiogram shows normal ejection fraction, no significant valvular heart disease, no pericardial effusion, however the left atrium is mode rately enlarged (49 mm parasternal long axis). He does not feel well in atrial fibrillatio n, his blood pressure is borderline, today we DC'd his losartan. He states that in the moises nings when he is laying down he notices his heart beating quite irregularly, sometimes fast, sometimes slow. We elected to put him on a low dose of metoprolol succinate, 25 mg nightl y. He does not want to wait another 3 weeks for elective cardioversion, we did discuss the possibility of MIGUEL guided cardioversion, he is in favor of this. Risks and benefits saria hawk, will try to arrange MIGUEL guided cardioversion in the near future. No Known Allergies Outpatient Encounter Prescriptions as of 04/05/2016 Medication Sig Dispense Refill apixaban (ELIQUIS) 5 MG tablet Take 5 mg by mouth 2 (two) times daily. atorvastatin (LIPITOR) 10 MG tablet Take 10 mg by mouth nightly. B Complex Vitamins (VITAMIN-B COMPLEX PO) Take by mouth daily. esomeprazole (NEXIUM) 20 MG capsule Take 20 mg by mouth every morning before breakf ast. fish oil omega-3 fatty acids 1000 MG capsule Take 1 g by mouth daily. nitroGLYCERIN (NITROSTAT) 0.[address] 1 tablet under the tongue every 5 (five) minutes as needed for Chest pain. 25 tablet 3 ranitidine (ZANTAC) 75 MG tablet Take 75 mg by mouth daily as needed for Heartburn. [DISCONTINUED] aspirin 81 MG EC tablet Take 81 mg by mouth daily with breakfast. [DISCONTINUED] losartan (COZAAR) 50 MG tablet Take 50 mg by mouth daily. metoprolol (TOPROL-XL) 25 MG 24 hr tablet Take 1 tablet by mouth daily. 30 tablet 1 [DISCONTINUED] calcium-vitamin D (CALCITRATE) 600-400 MG-UNIT per tablet Take 1 tab let by mouth 2 (two) times daily. [DISCONTINUED] Flaxseed, Linseed, (FLAXSEED OIL) 1000 MG CAPS Take 1,000 mg by mout h daily. [DISCONTINUED] omeprazole (PRILOSEC) 20 MG capsule Take 20 mg by mouth every mornin g before breakfast. No facility-administered encounter medications on file as of 04/05/2016. Social History Substance Use Topics Smoking status: Never Smoker Smokeless tobacco: Never Used Alcohol Use: 3.6 oz/week 6 Standard drinks or equivalent per week Comment: beer/wine/whiskey Review of Systems Constitutional: Positive for malaise/fatigue. Negative for fever. HENT: Negative for nosebleeds. Eyes: Negative for blurred vision and double vision. Respiratory: Negative for cough, hemoptysis, sputum production, shortness of breath and whe ezing. Cardiovascular: Positive for palpitations. Gastrointestinal: Negative for heartburn, nausea, vomiting, abdominal pain, diarrhea, const ipation, blood in stool and melena. Genitourinary: Negative for dysuria and hematuria. Musculoskeletal: Positive for joint pain (knees). Negative for myalgias. Skin: Negative for rash. Neurological: Negative for dizziness, tingling, sensory change, speech change, focal weakne ss, seizures, loss of consciousness, weakness and headaches. Endo/Heme/Allergies: Does not bruise/bleed easily. Psychiatric/Behavioral: Negative for depression. The following portions of the patient's history were reviewed and updated as appropriate: a llergies, current medications, past family history, past medical history, past social histor y, past surgical history and problem list. OBJECTIVE: Filed Vitals: 04/05/16 1253 BP: 96/68 Pulse: 80 Resp: 17 Height: 1.88 m (6' 2") Weight: 99.746 kg (219 lb 14.4 oz) SpO2: 97% Physical Exam Constitutional: He is oriented to person, place, and time and well-developed, well-nourishe d, and in no distress. Eyes: EOM are normal. Neck: No JVD present. Cardiovascular: Normal rate, S1 normal and S2 normal. An irregularly irregular rhythm pre sent. No extrasystoles are present. PMI is not displaced. Exam reveals no S3, no S4 and no friction rub. No murmur heard. No systolic murmur is present No diastolic murmur is present Pulses: Carotid pulses are 2+ on the right side, and 2+ on the left side. Radial pulses are 2+ on the right side, and 2+ on the left side. Femoral pulses are 2+ on the right side, and 2+ on the left side. Dorsalis pedis pulses are 2+ on the right side, and 2+ on the left side. Posterior tibial pulses are 2+ on the right side, and 2+ on the left side. Pulmonary/Chest: No respiratory distress. He has no wheezes. He has no rales. He exhibits n o tenderness. Abdominal: Bowel sounds are normal. He exhibits no distension and no mass. There is no tend erness. Musculoskeletal: He exhibits no edema. Neurological: He is alert and oriented to person, place, and time. Skin: Skin is warm and dry. No bruising, no ecchymosis and no rash noted. No cyanosis. Nail s show no clubbing. This note prepared with voice recognition software, if any questions concerning spelling an d/or grammar, please call. Alen NeelyKC documented in this encounter Plan of Treatment +--------+---------+ + + + | Date | Type | Specialty | Care Team | Description | +--------+---------+ + + + | 02/23/ Office | Cardiology | Srinivas Robledo, | | | 2019 | Visit | | MD [address] | | | | | | [place] | | | | | | [id number] | | | | | | | | +--------+---------+ + + + documented as of this encounter Procedures + +--------+ + + + | Procedure Name | Priori | Date/Time | Associated Diagnosis | Comments | | | ty | | | | + +--------+ + + + | ECG 12 LEAD | Routin | 04/19/2016 | | Results for this | | | e | 4:15 PM | | procedure are in the | | | | PDT | | results section. | + +--------+ + + + documented in this encounter Results ECG 12 lead (04/19/2016 4:15 PM PDT) + + + + + + | Component | Value | Ref Range | Performed | Pathologist | | | | | At | Signature | + + + + + + | DIAGNOSIS: | Sinus | | EXTERNAL | | | | bradycardiaPossible Left | | LAB | | | | atrial | | | | | | enlargementIncomplete | | | | | | right bundle branch | | | | | | blockLeft anterior | | | | | | fascicular blockPoor R - | | | | | | progressionAbnormal | | | | | | ECGWhen compared with | | | | | | ECG of 20-JUL-2015 | | | | | | 11:34,Incomplete right | | | | | | bundle branch block has | | | | | | replaced Non-specific | | | | | | intra-ventricular | | | | | | conduction blockMinimal | | | | | | criteria for Anterior | | | | | | infarct are now | | | | | | PresentConfirmed by | | | | | | JEVON IVY ([id number]) on | | | | | | 04/20/2016 7:19:17 AM | | | | + + + + + + + + | Specimen | + + | | + + + + + | Narrative | Performed At | + + + | S/p cardioversion. Pt is in the procedure room of [facility]. Thanks! | EXTERNAL LAB | | Historically converted procedure from [facility] environment | | + + + + +---------+ + + | Performing | Address | City/State/Zipcode | Phone Number | | Organization | | | | + +---------+ + + | EXTERNAL LAB | | | | + +---------+ + + documented in this encounter Visit Diagnoses + + | Diagnosis | + + | Paroxysmal atrial fibrillation (HCC) Atrial fibrillation | + + documented in this encounter
--- OUTSIDE RECORDS SUMMARY | ~2019-12-14 | XMS | Encounter Summary ---
Demographics + + + | Address | [address] | | | [place] [address] | + + + | Home Phone | | + + + | Preferred Language | Unknown | + + + | Marital Status | Single | + + + | Yazidism Affiliation | Unknown | + + + | Race | White | + + + | Ethnic Group | Not or | + + + Author + + + | Author | [facility] | + + + | Organization | [facility] | + + + | [...] Team Providers + +------+ + | Care Chemical Processing Supervisor Name | Role | Phone | + +------+ + PCP | Unavailable | + +------+ + Encounter Details +--------+ + + + + | Date | Type | Department | Care Team | Description | +--------+ + + + + | 11/13/ | Hospital | LAB SURGICAL | | | | 2012 | Encounter | PATHOLOGY [address] | | | | | [address] | | | | | | [place], [place] | | | | | | [address] | | | +--------+ + + + [...] Not on filedocumented as of this encounter Visit Diagnoses Not on filedocumented in this encounter"
--- OUTSIDE RECORDS SUMMARY | ~2019-12-14 | XMS | Encounter Summary ---
Demographics + + + | Address | [address] | | | [place] [address] | + + + | Home Phone | | + + + | Preferred Language | Unknown | + + + | Marital Status | | + + + | Anglican Affiliation | Unknown | + + + | Race | Unknown | + + + | Ethnic Group | Unknown | + + + Author + + + | Author | [facility] | | | and [place] | + + + | Organization | [facility] | | | and [place] | + + + | Address | Unknown | + + + | Phone | Unavailable | + + + Support + + +---------+ + | Name | Relationship | Address | Phone | + + +---------+ + | Yarygifty Solis | ECON | Unknown | | + + +---------+ + | Shwetha Rhoades | ECON | Unknown | | + + +---------+ + Care Team Providers + +------+ + | Care Parking Lot Attendant Name | Role | Phone | + +------+ + | Tereza Turner MD | PCP | | + +------+ + Reason for Visit +--------+--------+ + | Reason | Onset | Comments | | | Date | | +--------+--------+ + | Other | 03/31/ | [facility] | | | 2019 | | +--------+--------+ + Encounter Details +--------+ + + + + | Date | Type | Department | Care Team | Description | +--------+ + + + + | 03/31/ | Telephone | [facility] | Doug Flangaan MD | Other ([facility]) | | 2019 | | CARDIOLOGY [place] | [address] | | | | | [address] | [place] [address] | | | | | [place], [place] | [phone] | | | | | [address] | | | | | | [phone] | | | +--------+ + + + [...] + + documented as of this encounter Miscellaneous Notes Telephone Encounter - Marie Barclay Technologist - 03/31/2019 1:14 PM PDTmedilynx santos d - Patient had to have [facility] send him a new monitor and will start his new monitor Catherine rsday, 04/02/19. documented in this encounter Plan of Treatment +--------+---------+ + + + | Date | Type | Specialty | Care Team | Description | +--------+---------+ + + + | 02/23/ | Office | Cardiology | Srinivas Robledo, | | | 2019 | Visit | | MD [address] | | | | | | [address] [place], [place] | | | | | | [address] | | | | | | | | +--------+---------+ + + + documented as of this encounter Visit Diagnoses Not on filedocumented in this encounter"
--- OUTSIDE RECORDS SUMMARY | ~2019-12-14 | XMS | Encounter Summary ---
Demographics + + + | Address | [address] | | | [place] [address] | + + + | Home Phone | | + + + | Preferred Language | Unknown | + + + | Marital Status | Single | + + + | Rastafarian Affiliation | Unknown | + + + | Race | White | + + + | Ethnic Group | Not or | + + + Author + + + | Author | [facility] | + + + | Organization | [facility] | + + + | Address | [...] Team Providers + +------+ + | Care Water Control Station Engineer Name | Role | Phone | + +------+ + PCP | Unavailable | + +------+ + Encounter Details +--------+ + + + + | Date | Type | Department | Care Team | Description | +--------+ + + + + | 02/14/ | Results | Registration [address] | Other, Faculty | | | 2006 | Only | [address] | [phone] | | | | | [address] Mailcode: [id number] | | | | | | [place] | | | | | | [address] | | | | | | [phone] | | | +--------+ + + + [...] | + +--------+ + + + | DERMATOPATHOLOGY(WET | Routin | 02/14/2007 | | Results for this | | [facility]) | e | | | procedure are in the | | | | | | results section. | + +--------+ + + + documented in this encounter Results DERMATOPATHOLOGY(WET [facility]) (02/14/2007) + + + + + + | Component | Value | Ref Range | Performed | Pathologist | | | | | At | Signature | + + + + + + | DERMATOPATH | SOURCE OF SPECIMEN:A | | | | | OLOGY(WET | FIRST TISSUE LEVEL IV | | | | | MNT) | [address] CLINICAL | | | | | | DESCRIPTION:Shave, lt. | | | | | | abdomen; irreg. shaped | | | | | | and pigmented papule for | | | | | | unknown | | | | | | time;melanocytic nevus; | | | | | | R/O melanoma. GROSS | | | | | | DESCRIPTION:Lt. abdomen, | | | | | | shave, 0.7 x 0.5 cm, | | | | | | bisected. MICROSCOPIC | | | | | | DESCRIPTION:There is a | | | | | | small, symmetrical, and | | | | | | well circumscribed | | | | | | melanocytic neoplasm.The | | | | | | epidermis is mamillated | | | | | | with round to oval | | | | | | nests and single | | | | | | melanocytesalong the | | | | | | basal layer and | | | | | | extending down adnexae | | | | | | with nests of | | | | | | similarappearing | | | | | | melanocytes in the | | | | | | thickened and fibrotic | | | | | | papillary dermis. | | | | | | Themelanocytic nuclei | | | | | | are small and round to | | | | | | oval with melanin in | | | | | | thecytoplasm of the more | | | | | | superficial | | | | | | melanocytes. | | | | | | DIAGNOSIS:MELANOCYTIC | | | | | | NEVUS, COMPOUND | | | | | | TYPE.NOTE: The nevus | | | | | | appears to be completely | | | | | | excised in the shave | | | | | | specimen. | | | | | | [id number] | | | | | | Diagnostician: Callum | | | | | | Mamie Kenney Jr., | | | | | | M.KennediPathologistElectroni | | | | | | omar Signed 02/20/2007 | | | | + + + + + + + + | Specimen | + + | | + + + + + | Narrative | Performed At | + + + | Ordered by Emmanuel Mcknight | | + + + + + + + + | Performing | Address | City/State/Zipcode | Phone Number | | Organization | | | | + + + + + | [facility] | [address] | [place] [address] | | | DERMATOPATHOLOGY | [address] | | | + + + + + documented in this encounter Visit Diagnoses Not on filedocumented in this encounter"
--- OUTSIDE RECORDS SUMMARY | ~2019-12-14 | XMS | Encounter Summary ---
Demographics + + + | Address | [address] | | | [place] [address] | + + + | Home Phone | | + + + | Preferred Language | Unknown | + + + | Marital Status | | + + + | Anglican Affiliation | Unknown | + + + | Race | Unknown | + + + | Ethnic Group | Unknown | + + + Author + + + | Author | [facility] | | | and [place] | + + + | Organization | [facility] | | | and [...] Team Providers + +------+ + | Care Supervisor Coke Handling Name | Role | Phone | + +------+ + | Tereza Turner MD | PCP | | + +------+ + Encounter Details +--------+ + + + + | Date | Type | Department | Care Team | Description | +--------+ + + + + | // | Orders Only | [facility] | Conversion | | | 2016 | | CONVERSION [address] | Transaction, | | | | | [address] | Provider Unknown | | | | | [place], [place] | [phone] | | | | | [address] | | | | | | [phone] | | | +--------+ + + + [...] [place] | | | | | | [address] | | | | | | | | +--------+---------+ + + + documented as of this encounter Visit Diagnoses Not on filedocumented in this encounter"
--- OUTSIDE RECORDS SUMMARY | ~2019-12-14 | XMS | Encounter Summary ---
Demographics + + + | Address | [address] | | | [place] [address] | + + + | Home Phone | | + + + | Preferred Language | Unknown | + + + | Marital Status | | + + + | Pentecostalism Affiliation | Unknown | + + + | Race | Unknown | + + + | Ethnic Group | Unknown | + + + Author + + + | Author | [facility] | | | and [place] | + + + | Organization | [facility] | | | and [place] | + + + | Address | Unknown | + + + | Phone | Unavailable | + + + Support + + +---------+ + | Name | Relationship | Address | Phone | + + +---------+ + | Yary Buchanan | ECON | Unknown | | + + +---------+ + | Shwetha Rhoades | ECON | Unknown | | + + +---------+ + Care Team Providers + +------+ + | Care Phototypesetting Equipment Monitor Name | Role | Phone | + +------+ + | Tereza Turner MD | PCP | | + +------+ + Encounter Details +--------+ + + + + | Date | Type | Department | Care Team | Description | +--------+ + + + + | 06/04/ | Orders Only | [facility] | [facility] | | | 2018 | | [address] | | | | | [address] | [place] | | | | | [place], [place] | [place] [address] | | | | | [address] | [phone] | | | | | [phone] | | | +--------+ + + + [...] | | | | | [address] [address] [place], [place] | | | | | | [address] | | | | | | | | +--------+---------+ + + + documented as of this encounter Procedures + +--------+ + + + | Procedure Name | Priori | Date/Time | Associated Diagnosis | Comments | | | ty | | | | + +--------+ + + + | ECHO INTERPRETATION | Routin | 06/04/2018 | | Results for this | | OF OUTSIDE FILMS | e | 11:57 AM | | procedure are in the | | | | PST | | results section. | + +--------+ + + + documented in this encounter Results ECHO Interpretation of Outside Films (06/04/2018 11:57 AM PST) + + | Specimen | + + | | + + + + + | Impressions | Performed At | + + + | 1. The left ventricle is normal in size, wall thickness and systolic | | | function EF 60-65%. 2. The right ventricle is normal in size and | | | function. 3. No significant valvular pathology. 4. There is no | | | pericardial effusion. | | + + + + + + | Narrative | Performed At | + + + | Patient Name: SOO BUCHANAN Date of : 1950 | | | Performing Physician: Srinivas Robledo | | | | | | INDICATIONS CAD, paroxysmal A-fib, enlarged aorta | | | CONCLUSIONS 1. The left ventricle is normal in size, | | | wall thickness and systolic function EF 60-65%. 2. The right | | | ventricle is normal in size and function. 3. No significant valvular | | | pathology. 4. There is no pericardial effusion. FINDINGS | | | -------- ECG rhythm: Sinus rhythm. ECG rhythm: Resting bradycardia | | | (HR<60bpm). Study: A 2-dimensional transthoracic echocardiogram with | | | m-mode, spectral and color flow Doppler was perfomed. Study: This was | | | a technically adequate study. Left Ventricle: Overall left | | | ventricular systolic function is normal with, an EF between 60 - 65 %. | | | Left Ventricle: The left ventricle cavity size is normal. Left | | | Ventricle: Left ventricular wall thickness is normal. Left Ventricle: | | | No regional wall motion abnormalities. Left Ventricle: The diastolic | | | filling pattern is normal for the age of the patient. Right | | | Ventricle: The right ventricle is normal in size and function. Left | | | Atrium: The left atrium is normal in size. Right Atrium: The right | | | atrium is normal in size. Aortic Valve: The aortic valve appears to | | | be trileaflet. Aortic Valve: There is no evidence of aortic | | | regurgitation. Aortic Valve: There is no evidence of aortic stenosis. | | | Mitral Valve: The mitral valve is normal. Mitral Valve: No mitral | | | regurgitation. Tricuspid Valve: The tricuspid valve appears | | | structurally normal. Tricuspid Valve: Pulmonary artery systolic | | | pressure could not be assessed due to the absence of adequate TR jet. | | | Pulmonic Valve: The pulmonic valve was not well visualized. Pulmonic | | | Valve: Trace pulmonic regurgitation. Pulmonic Valve: No | | | significant valvular pathology, Pericardium: There is no pericardial | | | effusion. Pericardium: No pleural effusion seen. IVC/Hepatic Veins: | | | The IVC is small (<1.5cm) and collapses with sniff, consistent with | | | central venous pressures of 0-5mmHg. Aorta: The ascending aorta is | | | dilated measuring up to 4.2cm. MEASUREMENTS Ao | | | asc: 4.24 cm Ao Diam: 4.03 cm Ao sinus: 4.[address] | | | junct: 3.85 cm IVC: 1.40 cm EDV(Teich): 125.22 ml IVSd: | | | 0.99 cm LVIDd: 5.12 cm LVPWd: 1.00 cm LVOT Area: 3.96 cm2 | | | LVOT Diam: 2.24 cm %FS: 33.09 % EF(Teich): 61.33 % | | | ESV(Teich): 48.41 ml LVIDs: 3.42 cm SV(Teich): 76.80 ml RV | | | Major: 7.74 cm RV Minor: 3.80 cm RVIDd: 2.98 cm LVEF MOD | | | A2C: 63.99 % SV MOD A2C: 89.71 ml LVEF MOD A4C: 61.15 % SV | | | MOD A4C: 67.01 ml EF Biplane: 60.64 % LVEDV MOD BP: 123.85 | | | ml LVESV MOD BP: 48.73 ml LVEDV MOD A2C: 140.18 ml LVLd A2C: | | | 9.16 cm LVEDV MOD A4C: 109.57 ml LVLd A4C: 9.19 cm LVESV | | | MOD A2C: 50.46 ml LVLs A2C: 7.68 cm LVESV MOD A4C: 42.56 ml | | | LVLs A4C: 8.70 cm LAESV(A-L): 45.52 ml LAESV Index (A-L): | | | 20.32 ml/m2 LAAs A2C: 18.21 cm2 LAESV A-L A2C: 54.00 ml LALs | | | A2C: 5.21 cm LAAs A4C: 13.51 cm2 LAESV A-L A4C: 33.77 ml | | | LALs A4C: 4.58 cm RAAs: 13.69 cm2 RAESV A-L: 34.70 ml | | | RAESV MOD: 34.14 ml RALs: 4.58 cm TAPSE: 2.58 cm AV maxPG: | | | 6.04 mmHg AV meanP.28 mmHg AV Vmax: 1.22 m/s AV | | | Vmean: 0.85 m/s AV VTI: 25.10 cm BRENDA Vmax: 2.57 cm2 BRENDA | | | (VTI): 3.54 cm2 AVAI Vmax: 0.00 cm2/m2 AVAI (VTI): 0.00 | | | cm2/m2 LVOT maxP.55 mmHg LVOT meanP.68 mmHg LVSI | | | Dopp: 39.71 ml/m2 LVSV Dopp: 88.96 ml LVOT Vmax: 0.79 m/s | | | LVOT Vmean: 0.61 m/s LVOT VTI: 22.43 cm MV A Ruel: 0.54 m/s | | | MV Dec Brooke: 3.04 m/s2 MV DecT: 220.19 ms MV E Ruel: 0.67 | | | m/s MV E/A Ratio: 1.23 MV PHT: 63.85 ms MVA By PHT: 3.44 | | | cm2 Septal e': 0.06 m/s Septal E/e': 9.96 Lateral e': 0.07 | | | m/s Lateral E/e': 8.89 RAP: 5 mmHg 911 Emergency Services Dispatcher: SIERRA | | | Authenticated by: Srinivas Gradytroup Report Date/Time: 06-04-2018 | | | 19:11:39 | | + + + + + | Procedure Note | + + | [place], Rad Conversion - 02/05/2019 4:39 PM PDT Patient Name: Mya BUCHANAN of | | : 1950 Performing Physician: Srinivas | | Venkat INDICATIONS------ | | -----CAD, paroxysmal A-fib, enlarged aorta CONCLUSIONS 1. The left ventricle | | is normal in size, wall thickness and systolic function EF 60-65%.2. The right ventricle | | is normal in size and function.3. No significant valvular pathology.4. There is no | | pericardial effusion. FINDINGS--------ECG rhythm: Sinus rhythm.ECG rhythm: Resting | | bradycardia (HR<60bpm).Study: A 2-dimensional transthoracic echocardiogram with m-mode, | | spectral and color flow Doppler was perfomed.Study: This was a technically adequate | | study.Left Ventricle: Overall left ventricular systolic function is normal with, an EF | | between 60 - 65 %.Left Ventricle: The left ventricle cavity size is normal.Left | | Ventricle: Left ventricular wall thickness is normal.Left Ventricle: No regional wall | | motion abnormalities.Left Ventricle: The diastolic filling pattern is normal for the age | | of the patient.Right Ventricle: The right ventricle is normal in size and function.Left | | Atrium: The left atrium is normal in size.Right Atrium: The right atrium is normal in | | size.Aortic Valve: The aortic valve appears to be trileaflet.Aortic Valve: There is no | | evidence of aortic regurgitation.Aortic Valve: There is no evidence of aortic | | stenosis.Mitral Valve: The mitral valve is normal.Mitral Valve: No mitral | | regurgitation.Tricuspid Valve: The tricuspid valve appears structurally normal.Tricuspid | | Valve: Pulmonary artery systolic pressure could not be assessed due to the absence of | | adequate TR jet.Pulmonic Valve: The pulmonic valve was not well visualized.Pulmonic | | Valve: Trace pulmonic regurgitation.Pulmonic Valve: No significant valvular | | pathology,Pericardium: There is no pericardial effusion.Pericardium: No pleural effusion | | seen.IVC/Hepatic Veins: The IVC is small (<1.5cm) and collapses with sniff, consistent | | with central venous pressures of 0-5mmHg.Aorta: The ascending aorta is dilated measuring | | up to 4.2cm. MEASUREMENTS Ao asc: 4.24 cmAo Diam: 4.03 cmAo sinus: | | 4.[address] junct: 3.85 cmIVC: 1.40 cmEDV(Teich): 125.22 mlIVSd: 0.99 cmLVIDd: | | 5.12 cmLVPWd: 1.00 cmLVOT Area: 3.96 [id number] Diam: 2.24 cm%FS: 33.09 | | %EF(Teich): 61.33 %ESV(Teich): 48.41 mlLVIDs: 3.42 cmSV(Teich): 76.80 mlRV | | Major: 7.74 cmRV Minor: 3.80 cmRVIDd: 2.98 cmLVEF MOD A2C: 63.99 %SV MOD A2C: | | 89.71 mlLVEF MOD A4C: 61.15 %SV MOD A4C: 67.01 mlEF Biplane: 60.64 %LVEDV MOD BP: | | 123.85 mlLVESV MOD BP: 48.73 mlLVEDV MOD A2C: 140.18 mlLVLd A2C: 9.16 cmLVEDV | | MOD A4C: 109.57 mlLVLd A4C: 9.19 cmLVESV MOD A2C: 50.46 mlLVLs A2C: 7.68 cmLVESV | | MOD A4C: 42.56 mlLVLs A4C: 8.70 cmLAESV(A-L): 45.52 mlLAESV Index (A-L): 20.32 | | ml/m2LAAs A2C: 18.21 [id number] A-L A2C: 54.00 mlLALs A2C: 5.21 cmLAAs A4C: 13.51 | | [id number] A-L A4C: 33.77 mlLALs A4C: 4.58 cmRAAs: 13.69 [id number] A-L: 34.70 | | mlRAESV MOD: 34.14 mlRALs: 4.58 cmTAPSE: 2.58 cmAV maxP.04 mmHgAV meanPG: | | 3.28 mmHgAV Vmax: 1.22 m/Ania Vmean: 0.85 m/Ania VTI: 25.10 cmAVA Vmax: 2.57 | | cm2AVA (VTI): 3.54 [id number] Vmax: 0.00 cm2/m2AVAI (VTI): 0.00 cm2/m2LVOT maxPG: | | 2.55 mmHgLVOT meanP.68 mmHgLVSI Dopp: 39.71 ml/m2LVSV Dopp: 88.96 mlLVOT Vmax: | | 0.79 m/sLVOT Vmean: 0.61 m/sLVOT VTI: 22.43 cmMV A Ruel: 0.54 m/sMV Dec Brooke: | | 3.04 m/s2MV DecT: 220.19 msMV E Ruel: 0.67 m/sMV E/A Ratio: 1.23MV PHT: 63.85 | | msMVA By PHT: 3.44 [id number] e': 0.06 m/sSeptal E/e': 9.96Lateral e': 0.07 | | m/sLateral E/e': 8.89RAP: 5 mmHg 911 Emergency Services Dispatcher: DHAuthenticated by: Srinivas | | [facility] Date/Time: 06-04-2018 19:11:39 IMPRESSION: 1. The left ventricle is | | normal in size, wall thickness and systolic function EF 60-65%.2. The right ventricle is | | normal in size and function.3. No significant valvular pathology.4. There is no | | pericardial effusion. | |MEASUREMENTS | | | |Ao asc: 4.24 cm | |Ao Diam: 4.03 cm | |Ao sinus: 4.30 cm | |Ao st junct: 3.85 cm | |IVC: 1.40 cm | |EDV(Teich): 125.22 ml | |IVSd: 0.99 cm | |LVIDd: 5.12 cm | |LVPWd: 1.00 cm | |LVOT Area: 3.96 cm2 | |LVOT Diam: 2.24 cm | |%FS: 33.09 % | |EF(Teich): 61.33 % | |ESV(Teich): 48.41 ml | |LVIDs: 3.42 cm | |SV(Teich): 76.80 ml | |RV Major: 7.74 cm | |RV Minor: 3.80 cm | |RVIDd: 2.98 cm | |LVEF MOD A2C: 63.99 % | |SV MOD A2C: 89.71 ml | |LVEF MOD A4C: 61.15 % | |SV MOD A4C: 67.01 ml | |EF Biplane: 60.64 % | |LVEDV MOD BP: 123.85 ml | |LVESV MOD BP: 48.73 ml | |LVEDV MOD A2C: 140.18 ml | |LVLd A2C: 9.16 cm | |LVEDV MOD A4C: 109.57 ml | |LVLd A4C: 9.19 cm | |LVESV MOD A2C: 50.46 ml | |LVLs A2C: 7.68 cm | |LVESV MOD A4C: 42.56 ml | |LVLs A4C: 8.70 cm | |LAESV(A-L): 45.52 ml | |LAESV Index (A-L): 20.32 ml/m2 | |LAAs A2C: 18.21 cm2 | |LAESV A-L A2C: 54.00 ml | |LALs A2C: 5.21 cm | |LAAs A4C: 13.51 cm2 | |LAESV A-L A4C: 33.77 ml | |LALs A4C: 4.58 cm | |RAAs: 13.69 cm2 | |RAESV A-L: 34.70 ml | |RAESV MOD: 34.14 ml | |RALs: 4.58 cm | |TAPSE: 2.58 cm | |AV maxP.04 mmHg | |AV meanP.28 mmHg | |AV Vmax: 1.22 m/s | |AV Vmean: 0.85 m/s | |AV VTI: 25.10 cm | |BRENDA Vmax: 2.57 cm2 | |BRENDA (VTI): 3.54 cm2 | |AVAI Vmax: 0.00 cm2/m2 | |AVAI (VTI): 0.00 cm2/m2 | |LVOT maxP.55 mmHg | |LVOT meanP.68 mmHg | |LVSI Dopp: 39.71 ml/m2 | |LVSV Dopp: 88.96 ml | |LVOT Vmax: 0.79 m/s | |LVOT Vmean: 0.61 m/s | |LVOT VTI: 22.43 cm | |MV A Ruel: 0.54 m/s | |MV Dec Brooke: 3.04 m/s2 | |MV DecT: 220.19 ms | |MV E Ruel: 0.67 m/s | |MV E/A Ratio: 1.23 | |MV PHT: 63.85 ms | |MVA By PHT: 3.44 cm2 | |Septal e': 0.06 m/s | |Septal E/e': 9.96 | |Lateral e': 0.07 m/s | |Lateral E/e': 8.89 | |RAP: 5 mmHg | | | |911 Emergency Services Dispatcher: | |Authenticated by: Srinivas Robledo | |Report Date/Time: 06-04-2018 19:11:39 | | | |IMPRESSION: | |1. The left ventricle is normal in size, wall thickness and systolic function EF 60-65%. | |2. The right ventricle is normal in size and function. | |3. No significant valvular pathology. | |4. There is no pericardial effusion. | + + documented in this encounter Visit Diagnoses Not on filedocumented in this encounter"
--- OUTSIDE RECORDS SUMMARY | ~2019-12-14 | XMS | Encounter Summary ---
Demographics + + + | Address | [address] | | | [place] [address] | + + + | Home Phone | | + + + | Preferred Language | Unknown | + + + | Marital Status | | + + + | Zoroastrianism Affiliation | Unknown | + + + | Race | Unknown | + + + | Ethnic Group | Unknown | + + + Author + + + | Author | [facility] | | | and [place] | + + + | Organization | [facility] | | | and [...] Providers + +------+ + | Care Supervisor Alum Plant Name | Role | Phone | + +------+ + | Tereza Turner MD | PCP | | + +------+ + Reason for Visit + + + | Reason | Comments | + + + | Follow-up, Office | 2 month w/Echo | | Visit | | + + + Encounter Details +--------+---------+ + + + | Date | Type | Department | Care Team | Description | +--------+---------+ + + + | 07/06/ | Office | [facility] | [facility] | Paroxysmal atrial | | 2020 | Visit | CARDIOLOGY [place] | [address] | fibrillation (HCC) | | | | [address] | [address] | (Primary Dx); | | | | [address] | [place] [address] | Essential | | | | [place], [place] | [phone] | hypertension; Mixed | | | | [address] | | hyperlipidemia; | | | | [phone] | | Intermittent | | | | | | palpitations; | | | | | | Agatston coronary | | | | | | artery calcium score | | | | | | greater than 400; | | | | | | Ascending aorta | | | | | | dilatation (HCC); | | | | | | Encounter for | | | | | | monitoring | | | | | | flecainide therapy | +--------+---------+ + + + Social History [...] Comments | + + +---------+ + | Yes | 1 Cans of beer | 1.0 [...] + + + | Blood Pressure | 126/74 | 07/06/2019 9:19 AM | | | | | PST | | + + + + + | Pulse | 50 | 07/06/2019 9:19 AM | | | | | PST | | + + + + + | Temperature | - | - | | + + + + + | Respiratory Rate | - | - | | + + + + + | Oxygen Saturation | 97% | 07/06/2019 9:19 AM | | | | | PST | | + + + + + | Inhaled Oxygen | - | - | | | Concentration | | | | + + + + + | Weight | 100.2 kg (220 lb | 07/06/2019 9:19 AM | | | | 12.8 oz) | PST | | + + + + + | Height | 188 cm (6' 2") | 07/06/2019 9:19 AM | | | | | PST | | + + + + + | Body Mass Index | 28.35 | 07/06/2019 9:19 AM | | | | | PST | | + + + + + documented in this encounter Patient Instructions Patient Instructions Arleth Cabral FNP - 07/06/2019 9:30 AM PSTYour Echo and abdom inial US looked good I made no changes to medications I will have you establish care with either Dr. Zamudio or Dr. Robledo in 6 months Electronica lly signed by SANKET Rodriguez at 07/06/2019 9:39 AM PST documented in this encounter Progress Notes Arleth Cabral FNP - 07/06/2019 9:30 AM PSTFormatting of this note might be differe nt from the original. Date of visit: 07/06/2019 Primary Care Physician: Tereza Turner MD CHIEF COMPLAINT: Chief Complaint Patient presents with Follow-up, Office Visit 2 month w/Echo HISTORY OF PRESENT ILLNESS: Mr. Milan Solis is a 68 -year-old man who is here today up on his Echo and abdominal aorta US results. Today I reviewed all information available to me from electronic medical record, as well as from external sources. He has a history of atrial fibrillation s/p cardioversion 04/2016 and maintained in SR sin ce with flecainide, hypertension, hyperlipidemia, coronary artery disease with a positive C T coronary calcium score of 509 with significant calcification to his RCA and moderate calci fication to his left circumflex. His [id number] VASC score is 2 ( age HTN) and not on Eliquis since he has maintained sinus rh ythm, but remains anticoagulated on aspirin . I saw him last when I ordered him and Echo and abdominal US. , and followed ana cristina moore on his event monitor which I had ordered as he thought his heart was beating much more st rongly after I had stopped his metoprolol for bradycardia in December, His current and previous testing are detailed below. He reports today that he thinks the stronger heart rates that he notices are just because derek blanc is sitting quietly and has time to notice it, and his heart rate continues to be in the 50 -60 bpm range at rest, and up into the 80 bpm range with exercise He denies any other symptoms, palpitations, and reports he has not had any further epis odes of orthostatic lightheadedness since he saw me last. He denies any chest pain, central or peripheral edema, dyspnea, dizziness,or syncope. Derek blanc also denies any signs or symptoms of stroke or transient ischemic [...] . 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 REVIEW OF SYSTEMS: Negative except [...] other ps ychiatric illness. Vaccines: Current on 2019 flu vaccine. Current on pneumonia vaccine. Habits/Social : Denies history of smoking. EtOH use: beer occasionally .Drinks 1 servings of caffeine (iced tea/hot tea) daily . Denies recreational or illicit drug use Exercise s with a cane, golf and tolerates. 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 Outpatient Medications Prior to Visit Medication Sig Dispense Refill aspirin 81 MG tablet Take 81 mg by mouth daily. atorvaSTATin (LIPITOR) 20 mg tablet Take 1 tablet by mouth nightly. 90 tablet 3 esomeprazole (NEXIUM) 20 mg capsule Take 20 mg by mouth every morning (before breakfast ). Take one half tablet by mouth before breakfast flecainide (TAMBOCOR) 100 mg tablet TAKE 1 TABLET TWICE A DAY 180 tablet 3 nitroglycerin (NITROSTAT) 0.[address] 1 tablet under the tongue every 5 karen santino as needed (Chest pain). 25 tablet 3 No facility-administered medications prior to visit. PHYSICAL EXAM: Wt Readings from Last 3 Encounters: 07/06/19 100.2 kg (220 lb 12.8 oz) 05/04/19 99.3 kg (219 lb) 03/05/19 98.9 kg (218 lb) Temp Readings from Last 3 Encounters: No data found for Temp BP Readings from Last 3 Encounters: 07/06/19 126/74 05/04/19 118/76 03/05/19 128/74 Pulse Readings from Last 3 Encounters: 07/06/19 50 05/04/19 63 03/05/19 56 Vital signs: 01/08/2019 wt: 221 Lbs. BP: [...] abdominal aortic pulsation is not palpable. EXTREMITIES: Trace pedal edema. Radial pulses 2+ bilaterally. Femoral pulses are 2+ bila terally without bruits. DP and PT pulses are 2+ bilaterally. No clubbing. SKIN: Warm and dry, capillary refill is normal, no lesions. NEUROLOGIC: Awake, alert and oriented x 3. No focal motor or sensory deficits. PSYCHIATRIC: Appropriate, affect appears normal DATA: Blood tests: No results found for: WBC, RBC, HGB, HCT, PLT No results found for: NA, K, CL, CO2, ANIONGAP, GLUF, BUN, CREATININE, EGFR No results found for: CHOL, TRIG, LDL, LDL, GLUF No results found for: BNP, TSH, CRP No results found for: TOTEPI CARDIAC IMAGING/PROCEDURES CT Coronary Calcium: 06/07/2015: Calcium Score 509. Significant calcification in the RCA, moderate calcification LCx. Last Stress Test, 08/15/2015 ([facility]): Lexiscan, perfusion images NML, LVEF 60%. VASCULAR IMAGING/PROCEDURES Abdominal US: 06/04/2019: ( [facility]) normal caliber abdominal aorta, normal caliber iliac belle ines: Measurements aorta: Proximal: 2.3 x 1.9 cm, mid: 2.2 x 1.9 cm, distal: 2.2 x 2 cm righ t common iliac artery: 1.3 x 1.1 cm. Left common iliac artery 1.2 x 1.3 cm ECHO: Last Echo: 06/04/2019: ( [facility]) : TAS. SB.EF 3%. Mild LVH. No regional wall motion abnorma lities. Normal diastolic function. RV normal in size and function. Normal size atria. Tr ileaflet, aortic valve sclerosis without stenosis, no significant AI. Trace MR, mitral valv e normal with no stenosis. Tricuspid valve normal without stenosis or regurgitation. Pulmon ic valve not well visualized, trace [place]. Sinus Of Valsalva through ascending aorta appears d ilated in caliber measuring up to 4.3 cm. IVC WNL. No pericardial or pleural effusion. Echo: 06/04/2018: ([facility]): Resting bradycardia. Technically adequate study. EF 60-65 perce nt. LV normal in size and wall thickness. No regional wall motion abnormalities. Normal d iastolic function for age. RV normal in size and function. Normal size atria. Aortic valv e trileaflet, no aortic regurgitation or stenosis. Mitral valve normal, no MR. Tricuspid v alve normal, pulmonary pressures not assessed due to absence of TR jet. Trace PI. No signi ficant valvular pathology. No pericardial or pleural effusion. IVC WNL, CVP 0-5. Ascendin g aorta is dilated measuring up to 4.2 cm Echo, 04/04/2016: LVEF 60-65%, moderate LAE (49mm PSLAx), trace AI, trace MR, trace TR, t race PI, Aortic root 39mm, atherosclerosis present. EKG/EVENT MONITOR Monitor:03/23/2019-04/15/2019 : Fragmented study as monitor needed to be replaced as not wo rking.: Sinus rhythm, average heart rate 58 bpm, range 43-113. Bradycardia one episode at 38 bpm at 550 5 in the morning. SVE 1 run. Fastest episode 5 beats lasting 2 seconds with average heart rate of 115 bpm and the longest had 5 beats occurring at the 20 at 2057 lastin g 2 seconds with average rate of 115 bpm, no symptoms reported ECG,03/28/2016 (Dr Moore): A fib (80bpm), LAFB, incomplete RBBB pattern, non-spec ST-T [place] es. EK05/07: Sinus bradycardia with bifascicular block Rate 56 bpm, KY 184 ms, QRS 1 64 ms, QTC 480 ms EK02/07: Sinus bradycardia, left axis deviation, nonspecific IV block. Rate 45 bpm , KY 202 ms, QRS 126 ms, QTC 430, tracing reviewed by me EK08/12/2017: ( flecainide 100 mg BID,Toprol-XL 12.5 mg daily) Normal sinus rhythm, left axis deviation, nonspecific IV block. Rate 61 bpm, KY 188 ms, QRS 1:30 milliseconds, QTC 46 9 ms, tracing personally reviewed by me EK06/30/2018:( flecainide 100 mg BID, Toprol-XL 25 mg daily )Sinus bradycardia, nonspecif ic IV block. Rate 46 bpm, KY 194 ms, QRS 130 ms, QTC 427 ms tracing personally reviewed by me EK01/08/2019:(flecainide 100 mg BID, Toprol-XL 12.5 mg daily ) sinus bradycardia, nonspec ific IV conduction delay. First degree AV block. Rate 47 bpm, KY 204 ms, QRS 122 ms, QTC 4 19 Hernandez personally reviewed by me, and compared to EKG performed in June, now has first- degree AV block, otherwise similar morphology EK03/05/2019: sinus bradycardia nonspecific IV block, rate 51 bpm, KY 192 ms, QRS 130 ms , QTC [...] 40.7, platelets 154 Labs: 01/08/2019: Lipids: (Atorvastatin 20 mg): Cholesterol 127, triglycerides 269, HDL 38, LDL 35. CMP: Sodium 139, potassium 4, chloride 105, glucose 85, BUN 17, creatinine 0.78, T 17, ALT 18, alk phos 55, total bili 1.1, GFR 99, albumin 3.9. CBC: WBC 6.4, RBC 5.22, hem oglobin 15.7, hematocrit 46.7, platelets 188. ASSESSMENT & PLAN: He was here today to follow up on his Echo and abdominal US results. He has problems as detailed below. His Echo performed on June 04 is detailed above and reports a normal EF with mild LVH , no regional wall motion abnormalities, normal diastolic function, RV normal in size and fu nction, no significant valvular pathology, and sinus of Valsalva remains mildly dilated at 4 .3 cm, up slightly from last year. His abdominal ultrasound also performed on June 04 shows a normal caliber abdominal aor ta with normal caliber iliac arteries and is also detailed above. I discussed the results of his Echo and abdominal ultrasound in detail with him. He Is otherwise asymptomatic, been maintaining a sinus rhythm on flecainide, and rate remains well controlled without metoprolol and no pauses or blocks recorded on his event mon ito. I made no changes to cardiac medications today, and he should continue Atorvastatin 2 0 mg qhs for hyperlipidemia, aspirin 81 mg daily for coronary artery disease,and flecainid e 100 mg bid to maintain sinus rhythm. His blood pressure has also remained well controlled without metoprolol, but if increase d in the future, I will start him on losartan He has remained off Eliquis as he has maintained sinus rhythm, but we have previously dis cussed he would need to go back on it for atrial fibrillation. I will continue to monitor ascending aorta dilation with serial Echo's. I will have him establish care in 6-month with Dr. Ca as his primary pacs specialist on 02/24/2020, as he has met him before for other procedures. I will see him back in one year , but sooner if needed 1. Paroxysmal atrial fibrillation (HCC) 2. Essential hypertension 3. Mixed hyperlipidemia 4. Intermittent palpitations 5. Agatston coronary artery calcium score greater than 400 6. Ascending aorta dilatation (HCC) 7. Encounter for monitoring flecainide therapy No orders of the defined types were placed in this encounter. The following portions of the patient's history [...] past surgical history. Problem list. Talha ANGEL [facility] 07/06/2019 Xavier narvaez in this encounter Plan of Treatment +--------+---------+ + + + | Date | Type | Specialty | Care Team | Description | +--------+---------+ + + + | 02/23/ | Office | Cardiology | Srinivas Robledo, | | | 2019 | Visit | | MD Linh [address] | | | | | | [place] | | | | | | [id number] | | | | | | | | +--------+---------+ + + + documented as of this encounter Visit Diagnoses + + | Diagnosis | + + | Paroxysmal atrial fibrillation (HCC) - Primary Atrial fibrillation | + + | Essential hypertension Unspecified essential hypertension | + + | Mixed hyperlipidemia | + + | Intermittent palpitations | + + | Agatston coronary artery calcium score greater than 400 Nonspecific (abnormal) | | findings on radiological and other examination of other intrathoracic organs | + + | Ascending aorta dilatation (HCC) Thoracic aortic ectasia | + + | Encounter for monitoring flecainide therapy Encounter for therapeutic drug monitoring | + + documented in this encounter
--- OUTSIDE RECORDS SUMMARY | ~2019-12-14 | XMS | Encounter Summary ---
Demographics + + + | Address | [address] | | | [place] [address] | + + + | Home Phone | | + + + | Preferred Language | Unknown | + + + | Marital Status | | + + + | Baptist Affiliation | Unknown | + + + | Race | Unknown | + + + | Ethnic Group | Unknown | + + + Author + + + | Author | [facility] | | | and [place] | + + + | Organization | [facility] | | | [...] Team Providers + +------+ + | Care Diesel Fitter Mechanic Name | Role | Phone | + +------+ + | Tereza Turner MD | PCP | | + +------+ + Reason for Visit +--------+ + | Reason | Comments | +--------+ + | Other | end of study | +--------+ + Encounter Details +--------+ + + + + | Date | Type | Department | Care Team | Description | +--------+ + + + + | 03/23/ | Documentati | [facility] | Marie Barclay, | Other (end of study) | | 2019 | on | [facility]IOLOG[facility] [place] | Technologist | | | | | [address] | | | | | | [place] | | | | | | [address] | | | | | | [phone] | | | +--------+ + + + [...] documented as of this encounter Progress Notes Marie Barclay, Technologist - 03/23/2019 11:59 PM PDT Date of Event Monitor: 03/23/19 Referring Physician: [place]: Venu Solis : 1950 Age: 68 y.o. male INDICATIONS: Paroxysmal atrial fibrillation, Bradycardia, unspecified 1. Monitor for 1 day. 2. Predominantly sinus rhythm. 3. Average rate 58, fastest 113, slowest to 43. 4. 1% and bradycardia less than 60 bpm 5. 6% and bradycardia less than 50 bpm. 6. 0% below 40 bpm. 7. No significant pauses. 8. No evidence of atrial fibrillation 9. 1 atrial run of 5 beats. 10. No symptoms were reported. documented in this encounter Plan of Treatment +--------+---------+ + + + | Date | Type | Specialty | Care Team | Description | +--------+---------+ + + + | 02/23/ | Office | Cardiology | Srinivas Robledo, | | | 2019 | Visit | | MD Linh [address]G | | | | | | [place] | | | | | | [address] | | | | | | | | +--------+---------+ + + + documented as of this encounter Visit Diagnoses + + | Diagnosis | + + | Paroxysmal atrial fibrillation (HCC) Atrial fibrillation | + + | Bradycardia, unspecified | + + documented in this encounter"
--- OUTSIDE RECORDS SUMMARY | ~2019-12-14 | XMS | Clinical Summary ---
Demographics + + + | Address | [address] | | | [place] [address] | + + + | Home Phone | | + + + | Preferred Language | Unknown | + + + | Marital Status | Single | + + + | Quaker Affiliation | Unknown | + + + | Race | White | + + + | Ethnic Group | Not or | + + + Author + + + | Author | NON REVENUE LOCATIONS | + + + | Organization | NON REVENUE LOCATIONS | + + + | Address | [...] Team Providers + +------+ + | Care Young Adult Librarian Name | Role | Phone | + +------+ + PCP | Unavailable | + +------+ + Source Comments LAURA is fully live on both [facility] and [facility] Allergies Not on File Medications Not on file Active Problems Not on file Social History + +-------+ +--------+------+ | Tobacco [...] recent travel history available. | + + Last Filed Vital Signs Not on file Plan of Treatment + + + + + | Health Maintenance | Due Date | Last Done | Comments | + + + + + | Pneumococcal | | | | | vaccination (1 of 2 | 7 | | | | - PCV13) | | | | + + + + + | Influenza (Flu) | | | | | vaccination (#1) | 9 | | | + + + + + Results Not on filefrom Last 3 Months Insurance + +--------+ +--------+ + +------+ | Payer | Benefi | Subscriber | Effect | Phone | Address | Type | | | t Plan | ID | jose | | | | | | / | | Dates | | | | | | Group | | | | | | + +--------+ +--------+ + +------+ | [employer] | PACIFI | [id number] | | [phone] | [address] | PPO | | | [address] | | [phone] | [address] | | [address] | | [place] | | | | | | | | , [place] | | | | | | | | [phone] | | + +--------+ +--------+ + +------+ + +--------+ +--------+ + + | Guarantor Name | Accoun | Relation to | Date | Phone | Billing Address | | | t Type | Patient | of | | | | | | | | | | + +--------+ +--------+ + + | Venu Solis | Person | Self [birth year] | [address] | | [place] | al/[place] | | 1951 | [phone] | [place] [address] | | | filipe | | | 6 (Home) | | + +--------+ +--------+ + +"
--- OUTSIDE RECORDS SUMMARY | ~2019-12-14 | XMS | Clinical Summary ---
Demographics + + + | Address | [address] | | | [place] [address] | + + + | Home Phone | | + + + | Preferred Language | Unknown | + + + | Marital Status | | + + + | Pentecostal Affiliation | Unknown | + + + | Race | Unknown | + + + | Ethnic Group | Unknown | + + + Author + + + | Author | [facility] | | | and [place] | + + + | Organization | [facility] | | | and [...] Team Providers + +------+ + | Care Weather Teacher Name | Role | Phone | + +------+ + | Tereza Turner MD | PCP | | + +------+ + Allergies No Known Allergies Medications + + + +---------+------+------+-------+ | Medication | Sig | Dispensed | Refills | Star | End | Statu | | | | | | t | Date | s | | | | | | Date | | | + + + +---------+------+------+-------+ | aspirin 81 MG | Take 81 mg by mouth | | 0 | 02/2 | | Activ | | tablet | daily. | | | 6/20 | | e | | | | | | 18 | | | + + + +---------+------+------+-------+ | esomeprazole | Take 20 mg by mouth | | 0 | | | Activ | | (NEXIUM) 20 mg | every morning | | | | | e | | capsule | (before breakfast). | | | | | | + + + +---------+------+------+-------+ | atorvaSTATin | Take 1 tablet by | 90 | 3 | 11/ | | Activ | | (LIPITOR) 20 mg | mouth nightly. | tablet | | 8/20 | | e | | tablet | | | | 19 | | | + + + +---------+------+------+-------+ | nitroglycerin | Place 1 tablet under | 25 | 3 | 11/1 | 11 | Activ | | (NITROSTAT) 0.4 mg | the tongue every 5 | tablet | | 8/20 | 7 | e | | SL tablet | minutes as needed | | | 19 | 20 | | | | (Chest pain). | | | | | | + + + +---------+------+------+-------+ | flecainide | TAKE 1 TABLET TWICE | 180 | 3 | 12/3 | | Activ | | (TAMBOCOR) 100 mg | A DAY | tablet | | 0/20 | | e | | tablet | | | | 19 | | | + + + +---------+------+------+-------+ | cholecalciferol | Take 1,000 Units by | | 0 | | | Activ | | (VITAMIN D-3) 25 mcg | mouth Daily. | | | | | e | | (1,000 units) | | | | | | | | tablet | | | | | | | + + + +---------+------+------+-------+ Active Problems + + + | Problem | Noted Date | + + + | Encounter for monitoring flecainide therapy | 07/06/2019 | + + + | Intermittent palpitations | 03/05/2019 | + + + | [place] coronary artery calcium score greater than 400 | 06/30/2018 | + + + + + | Overview: CT Coronary Calcium: 06/07/2015: Calcium Score 509. | | Significant calcification in the RCA, moderate calcification | | LCx. | + + + + + | Ascending aorta dilatation | 06/30/2018 | + + + | Paroxysmal atrial fibrillation | 04/05/2016 | + + + | Essential hypertension | 07/25/2015 | + + + | Hyperlipemia | 07/25/2015 | + + + | GERD (gastroesophageal reflux disease) | 07/25/2015 | + + + | Malignant neoplasm of prostate | 12/18/2012 | + + + Encounters +--------+ + + + + | Date | Type | Specialty | Care Team | Description | +--------+ + + + + | 09/13/ | Virtual | Cardiology | Arleth Cabral | Paroxysmal atrial | | 2020 | Office | | [place] | fibrillation (HCC) | | | Visit | | | (Primary Dx); | | | | | | Essential | | | | | | hypertension; Mixed | | | | | | hyperlipidemia; | | | | | | [place] coronary | | | | | | artery calcium score | | | | | | greater than 400; | | | | | | Ascending aorta | | | | | | dilatation (HCC); | | | | | | Intermittent | | | | | | palpitations | +--------+ + + + + from Last 3 Months Family History + + +------+ + | Medical History | Relation | Name | Comments | + + +------+ + | Cancer | Father | | | + + +------+ + | Heart disease | Mother | | | + + +------+ + + +------+ + + | Relation | Name | Status | Comments | + +------+ + + | Father | | | prostate cancer | + +------+ + + | Father | | | | + +------+ + + | Mother | | | CHF,COPD,heart disease | | | | (Age | | | | | 53) | | + +------+ + + | Mother | | | | + +------+ + + Social History + +-------+ +--------+------+ [...] on file | | + + + Last Filed Vital Signs + + + + + | Vital Sign | Reading | Time Taken | Comments | + + + + + | Blood Pressure | 126/74 | 07/06/2019 9:19 AM | | | | | PST | | + + + + + | Pulse | 54 | 09/14/2019 9:41 AM | | | | | PDT | | + + + + + | Temperature | 36.8 C (98.2 F) | 04/19/2016 5:04 PM | | | | | PDT | | + + + + + | Respiratory Rate | 16 | 01/08/2019 9:10 AM | | | | | PDT | | + + + + + | Oxygen Saturation | 97% | 07/06/2019 9:19 AM | | | | | PST | | + + + + + | Inhaled Oxygen | - | - | | | Concentration | | | | + + + + + | Weight | 102.1 kg (225 lb) | 09/14/2019 9:41 AM | | | | | PDT | | + + + + + | Height | 188 cm (6' 2") | 09/14/2019 9:41 AM | | | | | PDT | | + + + + + | Body Mass Index | 28.89 | 09/14/2019 9:41 AM | | | | | PDT | | + + + + + Plan of Treatment +--------+---------+ + + + | Date | Type | Specialty | Care Team | Description | +--------+---------+ + + + | 02/23/ | Office | Cardiology | Srinivas Robledo, | | | 2019 | Visit | | [facility] [address] | | | | | | [place] | | | | | | [address] | | | | | | | | +--------+---------+ + + + + + + + + | Health Maintenance | Due Date | Last | Comments | | | | Done | | + + + + + | Hepatitis C | | | | | Screening | 2 | | | + + + + + | Vaccine: | | | | | Dtap/Tdap/Td (1 - | 1 | | | | Tdap) | | | | + + + + + | Colorectal Cancer | | | | | Screening | 2 | | | | (Colonoscopy) | | | | + + + + + | Vaccine: | | | | | Pneumococcal 65+ (1 | 7 | | | | of 1 - PPSV23) | | | | + + + + + | Adult Annual | | | | | Wellness Visit | 9 | | | + + + + + | Vaccine: Influenza | | | | | (Season Ended) | 0 | | | + + + + + | Vaccine: Zoster | Completed | 07/23/19 | | | | | 20, | | | | | 05/04/20 | | | | | 19 | | + + + + + Procedures + +--------+ + + + | Procedure Name | Priori | Date/Time | Associated Diagnosis | Comments | | | ty | | | | + +--------+ + + + | LABS - EXTERNAL SCAN | | 10/01/2019 | | Results for this | | | | 12:00 AM | | procedure are in the | | | | PDT | | results section. | + +--------+ + + + from Last 3 Months Results LABS - EXTERNAL SCAN (10/01/2019 12:00 AM PDT) + + + | Narrative | Performed At | + + + | Ordered by an | | | unspecified provider. | | + + + from Last 3 Months Insurance + +--------+ +--------+ +---------+------+ | Payer | Benefi | Subscriber | Effect | Phone | Address | Type | | | t Plan | ID | jose | | | | | | / | | Dates | | | | | | Group | | | | | | + +--------+ +--------+ +---------+------+ | [employer] | PACIFI | [id number] | 06/17/19 | [phone] | | PPO | | | [employer] | 00 | 19-Pre | 2 | | | | | E | | sent | | | | | | FIRST | | | | | | | | CHOICE | | | | | | + +--------+ +--------+ +---------+------+ + +--------+ +--------+ + + | Guarantor Name | Accoun | Relation to | Date | Phone | Billing Address | | | t Type | Patient | of | | | | | | | | | | + +--------+ +--------+ + + | Venu Solis | Person | Self | [birth year] | [address] | | | al/Fam | | 1951 | [phone] | [place] | | | filipe | | | [address] (Home) | [address] | + +--------+ +--------+ + + Advance Directives + + + + + | Type | Date Recorded | Patient | Explanation | | | | Case Picker | | + + + + + | Power of | | | | | Managed Services Sales Consultant | | | | + + + + + | Advance | | | | | Directive | | | | + + + + +
--- OUTSIDE RECORDS SUMMARY | ~2019-12-14 | XMS | Encounter Summary ---
Demographics + + + | Address | [address] | | | [place] [address] | + + + | Home Phone | | + + + | Preferred Language | Unknown | + + + | Marital Status | | + + + | Pentecostalism Affiliation | Unknown | + + + | Race | Unknown | + + + | Ethnic Group | Unknown | + + + Author + + + | Author | [facility] | | | and [place] | + + + | Organization | [facility] | | | and [...] Team Providers + +------+ + | Care Appliance Tester Name | Role | Phone | + +------+ + | Tereza Turner MD | PCP | | + +------+ + Reason for Visit + + + | Reason | Comments | + + + | Medication Refill | | + + + Encounter Details +--------+--------+ + + + | Date | Type | Department | Care Team | Description | +--------+--------+ + + + | 06/12/ | Refill | [facility] | Arleth Cabral | Medication Refill | | 2019 | | CARDIOLOGY [place] | [address] | | | | | [address] | [address] | | | | | [address] | [place] [address] | | | | | [place] | [phone] | | | | | [address] | | | | | | [phone] | | | +--------+--------+ + + + Social History + +-------+ [...] [place] | | | | | | [id number] | | | | | | | | +--------+---------+ + + + documented as of this encounter Visit Diagnoses Not on filedocumented in this encounter"
--- OUTSIDE RECORDS SUMMARY | ~2019-12-14 | XMS | Encounter Summary ---
Demographics + + + | Address | [address] | | | [place] [address] | + + + | Home Phone | | + + + | Preferred Language | Unknown | + + + | Marital Status | | + + + | Yazidism Affiliation | Unknown | + + + | Race | Unknown | + + + | Ethnic Group | Unknown | + + + Author + + + | Author | [facility] | | | and [place] | + + + | Organization | [facility] | | | [...] Providers + +------+ + | Care Supervisor Hot Dip Tinning Name | Role | Phone | + +------+ + | Tereza Turner MD | PCP | | + +------+ + Encounter Details +--------+ + + + + | Date | Type | Department | Care Team | Description | +--------+ + + + + | 06/30/ | Orders Only | [facility] | Arleth Cabral | | | 2019 | | CARDIOLOGY [place] | [address] | | | | | [address] | [address] | | | | | [address] | [place] [address] | | | | | [place] | [phone] | | | | | [address] | | | | | | [phone] | | | +--------+ + + + [...] [place] | | | | | | [id number] | | | | | | | | +--------+---------+ + + + documented as of this encounter Visit Diagnoses Not on filedocumented in this encounter"
--- OUTSIDE RECORDS SUMMARY | ~2019-12-14 | XMS | Encounter Summary ---
Demographics + + + | Address | [address] | | | [place] [address] | + + + | Home Phone | | + + + | Preferred Language | Unknown | + + + | Marital Status | Single | + + + | Buddhist Affiliation | Unknown | + + + | Race | White | + + + | Ethnic Group | Not or | + + + Author + + + | Author | [facility] | + + + | Organization | [facility] | + + + | [...] Team Providers + +------+ + | Care Gate Agent Name | Role | Phone | + +------+ + PCP | Unavailable | + +------+ + Encounter Details +--------+ + + + + | Date | Type | Department | Care Team | Description | +--------+ + + + + | 12/01/ | Human Services Professional | Urology at [facility] | [place], | Malignant neoplasm | | 2012 | | [address] | Brandon Hinton MD | of prostate (HCC) | | | | Mailcode: [place] | [address] | (Primary Dx) | | | | for Health and | [address] [place], | | | | | [facility], [address] | [place] [address] | | | | | [place], [place] | [phone] | | | | | [address] | | | | | | [phone] | | | +--------+ + + + [...] | | | | | | Institution: [facility] | | | | | | [facility] [place] | | | | | | [place] [address] | | | | | | Accession Number: | | | | | | [id number] | | | | | | Collection [...] | | | | | | biopsies ([id number], | | | | | | 11/13/2012, sublabeled | | | | | | A-F and Q-R, | | | | | | [place], [place] | | | | | | City, | | | | | | [place]):Prostate, left | | | | | | [...] | | | | | | adenocarcinoma, [place] | | | | | | score [...] | + + + + + | [facility] | [address] | [place] [address] | | | PATHOLOGY | [address] | | | + + + + + documented in this encounter Visit Diagnoses + + | Diagnosis | + + | Malignant neoplasm of prostate (HCC) - Primary Malignant neoplasm of prostate | + + documented in this encounter"
--- OUTSIDE RECORDS SUMMARY | ~2019-12-14 | XMS | Encounter Summary ---
Demographics + + + | Address | [address] | | | [place] [address] | + + + | Home Phone | | + + + | Preferred Language | Unknown | + + + | Marital Status | Single | + + + | Faith Affiliation | Unknown | + + + | Race | White | + + + | Ethnic Group | Not or | + + + Author + + + | Author | [facility] | + + + | Organization | [facility] | + + + | Address [...] Team Providers + +------+ + | Care Commercial Loan Administrator Name | Role | Phone | + +------+ + PCP | Unavailable | + +------+ + Encounter Details +--------+ + + + + | Date | Type | Department | Care Team | Description | +--------+ + + + + | 02/24/ | Ancillary | [facility] | | | | 2006 | Registratio | Practice [address] | | | | | n | [facility], | | | | | | [place] [address] | | | | | | [phone] | | | +--------+ + + + [...]
--- OUTSIDE RECORDS SUMMARY | ~2019-12-14 | XMS | Encounter Summary ---
Demographics + + + | Address | [address] | | | [place] [address] | + + + | Home Phone | | + + + | Preferred Language | Unknown | + + + | Marital Status | Single | + + + | Lutheran Affiliation | Unknown | + + + | Race | White | + + + | Ethnic Group | Not or | + + + Author + + + | Author | [facility] | + + + | Organization | [facility] | + + + | [...] Providers + +------+ + | Care Appliance Service Supervisor Name | Role | Phone | + +------+ + PCP | Unavailable | + +------+ + Encounter Details +--------+ + + + + | Date | Type | Department | Care Team | Description | +--------+ + + + + | 02/24/ | Ancillary | [facility] | | | | 2006 | Registratio | Practice [address] | | | | | n | [facility], | | | | | | [place] [address] | | | | | | [phone] | | | +--------+ + + + [...]
--- OUTSIDE RECORDS SUMMARY | ~2019-12-14 | XMS | Encounter Summary ---
Demographics + + + | Address | [address] | | | [place] [address] | + + + | Home Phone | | + + + | Preferred Language | Unknown | + + + | Marital Status | | + + + | Scientologist Affiliation | Unknown | + + + | Race | Unknown | + + + | Ethnic Group | Unknown | + + + Author + + + | Author | [facility] | | | and [place] | + + + | Organization | [facility] | | | [...] Team Providers + +------+ + | Care Chief Clerk Name | Role | Phone | + +------+ + | Tereza Turner MD | PCP | | + +------+ + Reason for Visit + + + | Reason | Comments | + + + | Follow-up, Office | Telephonic | | Visit | | + + + Encounter Details +--------+ + + + + | Date | Type | Department | Care Team | Description | +--------+ + + + + | 09/13/ | Virtual | [facility] | Arleth Cabral | Paroxysmal atrial | | 2020 | Office | [facility]ARDIOLOG[facility] [place] | [address] | fibrillation (HCC) | | | Visit | [address] | [address] | (Primary Dx); | | | | [address] | [place] [address] | Essential | | | | [place], [place] | [phone] | hypertension; Mixed | | | | [address] | | hyperlipidemia; | | | | [phone] | | Agatston coronary | | | | | | artery calcium score | | | | | | greater than 400; | | | | | | Ascending aorta | | | | | | dilatation (HCC); | | | | | | Intermittent | | | | | | palpitations | +--------+ + + + + Social [...] + + + | Blood Pressure | - | - | | + [...] Instructions Patient Instructions Arleth Cabral FNP - 09/14/2019 10:30 AM PDTYour last Echo was stable, and you are describing worrisome swelling today, and think it is secondary to your s ock being tight. I made no medication changes , and see you back in 6 months documented in this encounter Progress Notes Arleth Cabral FNP - 09/14/2019 10:30 AM PDTFormatting of this note might be differe nt from the original. Date of visit: 09/14/2019 Primary Care Physician: Tereza Turner MD CHIEF COMPLAINT: Chief Complaint Patient presents with Follow-up, Office Visit Telephonic Venu Solis has independently initiated the visit. Venu Solis verbally confirm ed his choice to initiate care by, and consents to receive care by Telephone. Participants: Patient All medical advice and/or management options were discussed 09/14/2019. Clinical discussion length with provider: 21-30 minutes of medical discussion via telephone visit ([id number]) Patient has not been seen in office within the past 7 days, and outcome of this call is not to recommend soonest available office visit. Return in about 1 year (around 09/13/2020) for bring medications to all clinic visits. Subjective: Patient ID: Venu Solis is a 68 y.o. male. 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 Milan Solis is a 68 -year-old man I am performing a telephone visit with to vikki majano his problems with increased lower extremity edema. Today I reviewed all information available to me from electronic medical record, as well a s from external sources. He has a history of atrial fibrillation s/p cardioversion 04/2016 and maintained in SR sin ce with flecainide, hypertension, hyperlipidemia, coronary artery disease with a positive C T coronary calcium score of 509 with significant calcification to his RCA and moderate calci fication to his left circumflex. His [id number] VASC score is 2 ( age HTN) and not on Eliquis since he has maintained sinus rh ythm, but remains anticoagulated on aspirin . I saw him last on July 06, 2019 when I followed up with him about his echo and abdomina l ultrasound which were stable and detailed below, and made no changes to his medications. His current and previous testing are detailed below. Today he reports his left leg is fine, but he has noticed an increased sock imprint inter mittently to his right lower leg, and his left and right leg are always different, as he has had significant injury to his left leg in the past and lost muscle tone, and it is always s maller than his right. I had him check his ankle for edema on either foot today, and he did not have any edema, an d denies any shortness of breath, increased palpitations, dizziness or lightheadedness. He thinks he may have occasional increased sock imprint on his right lower leg, but n o swelling to his right foot or left foot. He denies any chest pain, dizziness, lightheadedness, or syncope,or any signs or symptom s of stroke or TIA. 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 He also reports he saw his PCP, Dr. Turner on August 30 and she told him everything looked go od, and his labs were good, and his lipids were well controlled, and he had requested copies be sent to me, but I have not received them yet. He reviewed his medications over the phone with me today, and I also reviewed his pharmacy dispense record. He reports he is drinking 1-2 beers per week, and caffeine consumption mild to moderat e, and has been less active due to staying home from work, and not being able to go to the [facility] [employer] to work out,and his weight is up a slightly. REVIEW OF SYSTEMS: Negative except for pertinent [...] sputum production. Denies snoring, orthopnea, PND. Cardiovascular: Intermittent possible swelling to right calf, but not to his ankle, see HPI . Denies chest pain, palpitations. Denies history of rheumatic fever. Denies claudication . Gastrointestinal: History of GERD, on PPI. . 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 Denies excessive thirst or hunger. Psychiatric/Behavioral: Denies any history of depression or anxiety or other psychiatric il lness. Vaccines: Current on 2019 flu vaccine. Current on pneumonia vaccine. Habits/Social : Denies history of smoking. EtOH use: beer occasionally .Drinks 1 servings of caffeine (iced tea/hot tea) daily . Denies recreational or illicit drug use Exercise s with a cane, golf and tolerates. 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 Outpatient Medications Prior to Visit Medication Sig Dispense Refill aspirin 81 MG tablet Take 81 mg by mouth daily. atorvaSTATin (LIPITOR) 20 mg tablet Take 1 tablet by mouth nightly. 90 tablet 3 cholecalciferol (VITAMIN D-3) 25 mcg (1,000 units) tablet Take 1,000 Units by mouth Chrissy ly. esomeprazole (NEXIUM) 20 mg capsule Take 20 [...] EXAM: Wt Readings from Last 3 Encounters: 09/14/19 102.1 kg (225 lb) 07/06/19 100.2 kg (220 lb 12.8 oz) 05/04/19 99.3 kg (219 lb) Temp Readings from Last 3 Encounters: No data found for Temp BP Readings from Last 3 Encounters: 07/06/19 126/74 05/04/19 118/76 03/05/19 128/74 Pulse Readings from Last 3 Encounters: 09/14/19 54 07/06/19 50 05/04/19 63 Vital signs: 01/08/2019 wt: 221 Lbs. BP: 134/68 . HR. 47 Vital signs: 06/30/2018 wt: 218 Lbs. BP: 134/68 . HR. 46 Vital signs: 08/12/2017 wt: 222 Lbs. BP: 122/78 . HR. 76. Physical exam NOT DONE: but KEPT for history GENERAL: Well developed, well nourished, in no [...] Echo: 06/04/2019: ( [facility]) : TAS. SB.EF 60%. Mild LVH. No regional wall motion abnorm alities. Normal diastolic function. RV normal in size and function. Normal size atria. T rileaflet, aortic valve sclerosis without stenosis, no significant AI. Trace MR, mitral silvia ve normal with no stenosis. Tricuspid valve normal without stenosis or regurgitation. Pulmo annmarie valve not well visualized, trace OH. Sinus Of Valsalva through ascending aorta appears dilated in caliber measuring up to 4.3 cm. IVC WNL. No pericardial or pleural effusion. Echo: 06/04/2018: ([facility]): Resting bradycardia. Technically adequate study. EF 60-65 percen t. LV normal in size and wall thickness. No regional wall motion abnormalities. Normal di astolic function for age. RV normal in size and function. Normal size atria. Aortic valve trileaflet, no aortic regurgitation or stenosis. Mitral valve normal, no MR. Tricuspid va lve normal, pulmonary pressures not assessed due to absence of TR jet. Trace PI. No signif icant valvular pathology. No pericardial or pleural effusion. IVC WNL, CVP 0-5. Ascending aorta is dilated measuring up to 4.2 [...] bradycardia with bifascicular block Rate 56 bpm, OH 184 ms, QRS 1 64 ms, QTC 480 ms EK02/07: Sinus bradycardia, left axis deviation, nonspecific IV block. Rate 45 bpm , OH 202 ms, QRS 126 ms, QTC 430, tracing reviewed by ny EK08/12/2017: ( flecainide 100 mg BID,Toprol-XL 12.5 mg daily) Normal sinus rhythm, left axis deviation, nonspecific IV block. Rate 61 bpm, OH 188 ms, QRS 1:30 milliseconds, QTC 46 9 ms, tracing personally reviewed by ny EK06/30/2018:( flecainide 100 mg BID, Toprol-XL 25 mg daily )Sinus bradycardia, nonspecif ic IV block. Rate 46 bpm, OH 194 ms, QRS 130 ms, QTC 427 ms tracing personally reviewed by ny EK01/08/2019:(flecainide 100 mg BID, Toprol-XL 12.5 mg daily ) sinus bradycardia, nonspec ific IV conduction delay. First degree AV block. Rate 47 bpm, OH 204 ms, QRS 122 ms, QTC 4 19 Hernandez personally reviewed by me, and compared to EKG performed in June, now has first- degree AV block, otherwise similar morphology EK03/05/2019: sinus bradycardia nonspecific IV block, rate 51 bpm, OH 192 ms, QRS 130 ms , QTC [...] hem oglobin 15.7, hematocrit 46.7, platelets 188. Addendum: Labs: 08/31/2019: Lipids: Cholesterol 122, triglycerides 311, HDL 40, LDL 20 CMP: Sodium 138, potassium 3.6, chloride 106, glucose 112, BUN 17, creatinine 0.78, GFR 99, AST 1 7, ALT 20, alk phos 54, total bili 1.1, albumin 4.4. PSA <0.014. CBC: WBC 7.4, RBC 5.34, h emoglobin 15.8, hematocrit 46.6, platelets 160. B12 497. ASSESSMENT & PLAN: He was dissipated in a telephone visit with me today discuss his concern with swelling to his right lower leg. He has problems as detailed below. As discussed in HPI, he does not seem to truly have edema, as his ankles are not swollen, derek blanc just occasionally has more of an imprint to his calf from his sock, and he has no other sy mptoms of shortness of breath or other indications of fluid retention. I discussed this with him today, and directed him how to accurately assess edema to his a nkles and told him that the edema always starts at the lowest possible point and then works its way up, and that we can have localized swelling that is not fluid retention and is not c oncerning. I also discussed with him given how normal his last Echo was, that it was unlikely that derek blanc was having any heart failure, especially given his excellent activity tolerance. He also just had a physical exam from his PCP per his report on August 30, and she had cong d him that he was doing well, and that his labs were normal. It would seem in further discussion with him that a lot of his concern is the fact that derek blanc always sees me assess his pedal pulses and lower extremities for swelling, and I told him that I did this on everyone, and I had no specific concerns for him it was just part of my g eneral cardiovascular exam He Is otherwise asymptomatic, I made no changes to cardiac medications [...] 6-month with Dr. Ca as his primary marine farmer on 02/24/2020, as he has met him before for other procedures. I will see him back in one year , but sooner if needed Addendum received copy of PCP note and labs after our phone call, and reviewed by me, lipid s well controlled except for elevated triglycerides, and blood pressure and heart rate look good, and noted did not use oral antifungals for interaction with flecainide. 1. Paroxysmal atrial fibrillation (HCC) 2. Essential hypertension 3. Mixed hyperlipidemia 4. Agatston coronary artery calcium score greater than 400 5. Ascending aorta dilatation (HCC) 6. Intermittent palpitations No orders of the defined types were placed in this encounter. The following portions of the patient's history were personally reviewed by me and updated as appropriate: EKG tracings, other specialty provider and PCP notes,any Hospital admission and discharge summaries, any ER records , current and previous cardiac testing and procedure reports and d keyur, , medication from patient reports and pharmacy dispense record personally reviewed by me ,allergies, current medications.labs Family history, past medical history, past social history, past surgical history. Problem list. Talha ANGEL [facility] Cardiology 09/14/2019 docume solange in this encounter Plan of Treatment +--------+---------+ + + + | Date | Type | Specialty | Care Team | Description | +--------+---------+ + + + | 02/23/ | Office | Cardiology | Srinivas Robledo, | | | 2019 | Visit | | MD Linh CHEUNG | | | | | | [place] | | | | | | [id number] | | | | | | | [...] Thoracic aortic ectasia | + + | Intermittent palpitations | + + documented in this encounter
--- OUTSIDE RECORDS SUMMARY | ~2019-12-14 | XMS | Clinical Summary ---
Demographics + + + | Address | [address] | | | [place] [address] | + + + | Home Phone | | + + + | Preferred Language | Unknown | + + + | Marital Status | Single | + + + | Methodist Affiliation | Unknown | + + + [...] Team Providers + +------+ + | Care Lost And Found Clerk Name | Role | Phone | + +------+ + PCP | Unavailable | + +------+ + Source Comments LAURA is fully live on both [facility] and [facility] InPatient.[facility] Allergies Not on File Medications Not on [...] PACIFICSOURCE | PACIFI | [id number] | | [phone] | [address] | [address] | | | [address] | | [phone] | | | | [address] | | [address] | | [place] | | | | | | | | , [place] | | | | | | | | [address] | | + +--------+ +--------+ + +------+ [...] al/Aldair | | 1951 | [phone] | [place] [address] | | | filipe | | | [address] (Home) | | + +--------+ +--------+ + +"
--- OUTSIDE RECORDS SUMMARY | ~2019-12-14 | XMS | Encounter Summary ---
Demographics + + + | Address | [address] | | | [place] [address] | + + + | Home Phone | | + + + | Preferred Language | Unknown | + + + | Marital Status | Single | + + + | Oriental Orthodox Affiliation | Unknown | + + + | Race | White | + + + | Ethnic Group | Not or | + + + Author + + + | Author | [facility] | + + + | Organization | [facility] | + + + | Address [...] Team Providers + +------+ + | Care Negative Turner Name | Role | Phone | + [...] [address] | | | | | | [place], [place] | | | | | | [address] | | | +--------+ + + + [...]
--- OUTSIDE RECORDS SUMMARY | ~2019-12-14 | XMS | Encounter Summary ---
Demographics + + + | Address | [address] | | | [place] [address] | + + + | Home Phone | | + + + | Preferred Language | Unknown | + + + | Marital Status | | + + + | Taoism Affiliation | Unknown | + + + | Race | Unknown | + + + | Ethnic Group | Unknown | + + + Author + + + | Author | [facility] | | | and [place] | + + + | Organization | [facility] | | | and [place] | + + + | Address | Unknown | + + + | Phone | Unavailable | + + + Support + + +---------+ + | Name | Relationship | Address | Phone | + + +---------+ + | Yary Solis | ECON | Unknown | | + + +---------+ + | Shwetha Rhodaes | ECON | Unknown | | + + +---------+ + Care Team Providers + +------+ + | Care Cvicu Nurse Name | Role | Phone | + +------+ + | Tereza Turner MD | PCP | | + +------+ + Reason for Referral Diagnostic/Screening (Routine) + +--------+ + + + + | Status | Reason | Specialty | Diagnoses / | Referred By | Referred To | | | | | Procedures | Contact | Contact | + +--------+ + + + + | Authorized | | | Diagnoses | Misha, | [facility] | | | | | Paroxysmal | [facility], | [facility] | | | | | atrial | [address] | [address] | | | | | fibrillation | [address] | [address] | | | | | (HCC) | [address] | [place], [place] | | | | | Essential | [place], [place] | [address] | | | | | hypertension | [address] | Phone: | | | | | | Phone: | [phone] | | | | | Intermittent | [phone] | Fax: | | | | | | Fax: | [phone] | | | | | palpitations | [phone] | | | | | | Agatston | | | | | | | coronary | | | | | | | artery | | | | | | | calcium | | | | | | | score | | | | | | | greater than | | | | | | | 400 | | | | | | | Ascending | | | | | | | aorta | | | | | | | dilatation | | | | | | | ([facility]) | | | | | | | Procedures | | | | | | | ECHO | | | | | | | Complete | | | + +--------+ + + + + Reason for Visit + + + | Reason | Comments | + + + | Follow-up | 6 week / Holter | + + + Encounter Details +--------+---------+ + + + | Date | Type | Department | Care Team | Description | +--------+---------+ + + + | 05/04/ | Office | [facility] | Arleth Cabral | Paroxysmal atrial | | 2019 | Visit | CARDIOLOGY [place] | [address] | fibrillation (HCC) | | | | [address] | [address] | (Primary Dx); | | | | [address] | [place] [address] | Essential | | | | [place], [place] | [phone] | hypertension; Mixed | | | | [address] | | hyperlipidemia; | | | | [phone] | | Intermittent | | | | | | palpitations; | | | | | | Bradycardia by | | | | | | electrocardiogram; | | | | | | Agatston coronary | | | | | | artery calcium score | | | | | | greater than 400; | | | | | | Ascending aorta | | | | | | dilatation (HCC) | +--------+---------+ + + + Social History [...] + + + | Blood Pressure | 118/76 | 05/04/2019 10:59 AM | | | | | PST | | + + + + + | Pulse | 63 | 05/04/2019 10:59 AM | | | | | PST | | + + + + + | Temperature | - | - | | + + + + + | Respiratory Rate | - | - | | + + + + + | Oxygen Saturation | 95% | 05/04/2019 10:59 AM | | | | | PST | | + + + + + | Inhaled Oxygen | - | - | | | Concentration | | | | + + + + + | Weight | 99.3 kg (219 lb) | 05/04/2019 10:59 AM | | | | | PST | | + + + + + | Height | 188 cm (6' 2") | 05/04/2019 10:59 AM | | | | | PST | | + + + + + | Body Mass Index | 28.12 | 05/04/2019 10:59 AM | | | | | PST | | + + + + + documented in this encounter Patient Instructions Patient Instructions Arleth Cabral FNP - 05/04/2019 11:00 AM PSTI have ordered you an Echo to be done at [facility] in May and see me back at middle to end of June . Addendum: left message also ordered Abdominal aorta US to be done with Echo as well I made no changes to medications documented in this encounter Progress Notes Arleth Cabral FNP - 05/04/2019 11:00 AM PSTFormatting of this note might be differe nt from the original. Date of visit: 05/04/2019 Primary Care Physician: Tereza Turner MD CHIEF COMPLAINT: Chief Complaint Patient presents with Follow-up 6 week / Holter HISTORY OF PRESENT ILLNESS: Mr. Milan Solis is a 68 -year-old man who is here today up on his Holter monitor resu lts. Today I reviewed all information available to [...] calcif ication to his left circumflex. His [id number] VASC score is 2 ( age HTN) and not on Eliquis since he has maintained sinus rh ythm, but remains anticoagulated on aspirin . I saw him last 03/05/2019 and ordered him an event monitor as he had reported 3-4 episodes per month when he thought his heart was beating much more strongly after I had stopped his m etoprolol for bradycardia in December His current and previous testing are detailed below. He reports today that this is a stronger heart rates after he eats, predominantly after br eakfast and dinner, and sometimes at night, but when he checks it, his heart rate is only 50 -60 bpm, and when he exercises it predominantly is in the 80 bpm range. Eyes any other symptoms, palpitations, and reports he has not had any further episodes of o rthostatic lightheadedness since he saw me last. He denies any chest pain, central or peripheral edema, dyspnea, dizziness,or syncope. 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 REVIEW OF SYSTEMS: Negative except [...] cane, golf and tolerates. 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 Outpatient Medications Prior to Visit Medication Sig Dispense Refill aspirin 81 MG tablet Take 81 mg by mouth daily. atorvaSTATin (LIPITOR) 10 mg tablet Take 1 tablet by mouth nightly. (Patient taking dif ferently: Take 20 mg by mouth nightly.) 90 tablet 3 atorvaSTATin (LIPITOR) 20 mg tablet Take 20 mg by mouth nightly. esomeprazole (NEXIUM) 20 mg capsule Take 20 [...] EXAM: Wt Readings from Last 3 Encounters: 05/04/19 99.3 kg (219 lb) 03/05/19 98.9 kg (218 lb) 07/20/15 100.8 kg (222 lb 3.2 oz) Temp Readings from Last 3 Encounters: No data found for Temp BP Readings from Last 3 Encounters: 05/04/19 118/76 03/05/19 128/74 07/20/15 134/68 Pulse Readings from Last 3 Encounters: 05/04/19 63 03/05/19 56 07/20/15 64 Vital signs: 01/08/2019 wt: 221 [...] bradycardia with bifascicular block Rate 56 bpm, VT 184 ms, QRS 1 64 ms, QTC 480 ms EK02/07: Sinus bradycardia, left axis deviation, nonspecific IV block. Rate 45 bpm , VT 202 ms, QRS 126 ms, QTC 430, tracing reviewed by me EK08/12/2017: ( flecainide 100 mg BID,Toprol-XL 12.5 mg daily) Normal sinus rhythm, left axis deviation, nonspecific IV block. Rate 61 bpm, VT 188 ms, QRS 1:30 milliseconds, QTC 46 9 ms, tracing personally reviewed by me EK06/30/2018:( flecainide 100 mg BID, Toprol-XL 25 mg daily )Sinus bradycardia, nonspecif ic IV block. Rate 46 bpm, VT 194 ms, QRS 130 ms, QTC 427 ms tracing personally reviewed by me EK01/08/2019:(flecainide 100 mg BID, Toprol-XL 12.5 mg daily ) sinus bradycardia, nonspec ific IV conduction delay. First degree AV block. Rate 47 bpm, VT 204 ms, QRS 122 ms, QTC 4 19 Hernandez personally reviewed by me, and compared to EKG performed in June, now has first- degree AV block, otherwise similar morphology EK03/05/2019: sinus bradycardia nonspecific IV block, rate 51 bpm, VT 192 ms, QRS 130 ms , QTC [...] here today to follow up on his Holter monitor results. He has problems as detailed below. His Holter monitor results are detailed above, and show sinus rhythm predominantly with an average heart rate of 58 bpm with a range of 43-113, and very low incidence of heart rates l ess than 40, and only one run of supraventricular episodes, and no symptoms reported. He also monitored his own heart rate when he felt the symptoms of a stronger heart rate,, which is occurring primarily after he eats, and sometimes at night, and reports it wa s almost always in the 50-60 bpm range so no fast heart rates or palpitations, just a strong er beat.. He Is otherwise asymptomatic, been maintaining a sinus rhythm on flecainide, and rate remains well controlled without metoprolol and no pauses or blocks recorded on his event mon itor. I discussed the results of his event monitor in detail with him. I made no changes to cardiac medications [...] ascending aorta dilation with serial Echo's. I have ordered him a baseline abdominal US for AAA screening , as well as his Echo wh ich he has requested be performed in May. I will see him back in June to go over the results 1. Paroxysmal atrial fibrillation (HCC) 2. Essential hypertension 3. Mixed hyperlipidemia 4. Intermittent palpitations 5. Bradycardia by electrocardiogram 6. 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 Ascending aorta dilatation (HCC) Orders Placed This Encounter Procedures US Aorta Complete ECHO Complete The following portions of the patient's history [...] past surgical history. Problem list. Talha ANGEL [facility] 05/04/2019 Clarisa ented in this encounter Plan of Treatment +--------+---------+ + + + | Date | Type | Specialty | Care Team | Description | +--------+---------+ + + + | 02/23/ | Office | Cardiology | Srinivas Robledo, | | | 2019 | Visit | | MD Linh CHEUNG | | | | | | [address] [place] | | | | | | [id number] | | | | | | | | +--------+---------+ + + + + + +--------+ + + | Name | Type | Priori | Associated Diagnoses | Order Schedule | | | | ty | | | + + +--------+ + + | ECHO Complete | Echocardiog | Routin | Paroxysmal atrial | Expected: | | | evan | e | fibrillation (HCC) | 05/17/2019, Expires: | | | | | Essential | 05/04/2020 | | | | | hypertension | | | | | | Intermittent | | | | | | palpitations | | | | | | Agatston coronary | | | | | | artery calcium score | | | | | | greater than 400 | | | | | | Ascending aorta | | | | | | dilatation (HCC) | | + + +--------+ + + | US Aorta Complete | Imaging | Routin | Essential | Expected: | | | | e | hypertension | 05/17/2019, Expires: | | | | | Agatston coronary | 05/04/2020 | | | | | artery calcium score | | | | | | greater than 400 | | | | | | Ascending aorta | | | | | | dilatation (HCC) | | + + +--------+ + + documented as of this encounter Visit Diagnoses + + | Diagnosis | + + | Paroxysmal atrial fibrillation (HCC) - Primary Atrial fibrillation | + + | Essential hypertension Unspecified essential hypertension | + + | Mixed hyperlipidemia | + + | Intermittent palpitations | + + | Bradycardia by electrocardiogram Other specified cardiac dysrhythmias | + + | 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
--- OUTSIDE RECORDS SUMMARY | ~2019-12-14 | XMS | Encounter Summary ---
Demographics + + + | Address | [address] | | | [place] [address] | + + + | Home Phone | | + + + | Preferred Language | Unknown | + + + | Marital Status | | + + + | Rastafarian Affiliation [...] Team Providers + +------+ + | Care Clerical And Administrative Workers Name | Role | Phone | + +------+ + | Tereza Turner MD | PCP | | + +------+ + Encounter Details +--------+ + + + + | Date | Type | Department | Care Team | Description | +--------+ + + + + | 04/04/ | Orders Only | [facility] | Luis Carlos Escobar Miguel | | | 2016 | | [place] | MD [address] | | | | | ECHO [address] | [address] | | | | | [address] [place], [place] | [place] [address] | | | | | [address] | [phone] | | | | | [phone] | | | +--------+ + + + [...] | | | | | [address] [place] | | | | | | [address] | | | | | | | | +--------+---------+ + + + documented as of this encounter Procedures + +--------+ + + + | Procedure Name | Priori | Date/Time | Associated Diagnosis | Comments | | | ty | | | | + +--------+ + + + | ECHO COMPLETE | Routin | 04/04/2016 | | Results for this | | | e | 9:46 AM | | procedure are in the | | | | PDT | | results section. | + +--------+ + + + documented in this encounter Results ECHO Complete (04/04/2016 9:46 AM PDT) + + | Specimen | + + | | + + + + + | Impressions | Performed At | + + + | 1. Atrial fibrillation. 2. LV dimensions and systolic function NML, | | | diastolic function abnormal, Epes visually estimates LVEF 60-65%. | | | Moderate LAE. RA/RV NML. 3. Aortic valve mildly sclerotic, trace | | | AI, no . Mitral, Tricuspid, and Pulmonic valves grossly NML. | | | Trace MR, trace TR, trace PI. 4. No Pericardial effusion. 5. IVC | | | NML, inadequate TR to estimate PAP. 6. Aortic root 39mm, | | | atherosclerosis present. | | + + + + + + | Narrative | Performed At | + + + | Patient Name: SOO BUCHANAN Date of : 1950 | | | Performing Physician: Luis Carlos Escobar DO | | | | | | INDICATIONS afib CONCLUSIONS 1. Atrial | | | fibrillation. 2. LV dimensions and systolic function NML, diastolic | | | function abnormal, Epes visually estimates LVEF 60-65%. Moderate | | | LAE. RA/RV NML. 3. Aortic valve mildly sclerotic, trace AI, no . | | | Mitral, Tricuspid, and Pulmonic valves grossly NML. Trace MR, | | | trace TR, trace PI. 4. No Pericardial effusion. 5. IVC NML, inadequate | | | TR to estimate PAP. 6. Aortic root 39mm, atherosclerosis present. | | | FINDINGS -------- ECG rhythm: Atrial fibrillation. Study: A | | | 2-dimensional transthoracic echocardiogram with m-mode, spectral and | | | color flow Doppler was perfomed. Study: This was a technically | | | adequate study. Left Ventricle: Overall left ventricular systolic | | | function is normal with, an EF between 60 - 65 %. Left Ventricle: The | | | left ventricle cavity size is normal. Left Ventricle: Left | | | ventricular wall thickness is normal. Left Ventricle: The diastolic | | | filling pattern indicates impaired relaxation consistent with mild | | | dysfunction (Grade I). Right Ventricle: The right ventricle is normal | | | in size. Right Ventricle: The right ventricular systolic function is | | | normal. Left Atrium: The left atrium is normal in size. Left | | | Atrium: The left atrium is moderately dilated. Right Atrium: The | | | right atrial size is normal. Aortic Valve: There is mild aortic valve | | | sclerosis without stenosis. Aortic Valve: Trace amount of aortic | | | regurgitation. Mitral Valve: The mitral valve is normal. Mitral | | | Valve: There is trace mitral regurgitation. Mitral Valve: Mild mitral | | | annular calcification present. Tricuspid Valve: The tricuspid valve | | | appears structurally normal. Tricuspid Valve: Trace tricuspid | | | regurgitation present. Tricuspid Valve: Pulmonary artery systolic | | | pressure could not be assessed due to the absence of adequate TR jet. | | | Pulmonic Valve: The pulmonic valve is normal. Pulmonic Valve: Trace | | | pulmonic regurgitation. Pericardium: There is no pericardial | | | effusion. IVC/Hepatic Veins: The IVC is normal size (1.5-2.5cm) and | | | collapses >50% with sniff, consistent with central venous pressures of | | | 5-10mmHg. Aorta: The aortic root is dilated measuring 3.9cm. Aorta: | | | The aortic root is mildly calciifed Mass: No mass visualized | | | Thrombus: No clot visualized Septum: No ASD observed. Septum: No VSD | | | observed. MEASUREMENTS Ao asc: 3.46 cm IVC: | | | 2.37 cm EDV(Teich): 108.97 ml IVSd: 0.99 cm LVIDd: 4.82 | | | cm LVPWd: 1.05 cm LVOT Area: 4.99 cm2 LVOT Diam: 2.52 cm | | | %FS: 20.23 % EF(Teich): 41.31 % ESV(Teich): 63.95 ml | | | LVIDs: 3.85 cm SV(Teich): 45.01 ml RVIDd: 3.33 cm LVEF MOD | | | A2C: 60.71 % SV MOD A2C: 59.42 ml LVEF MOD A4C: 48.64 % | | | SV MOD A4C: 48.31 ml EF Biplane: 56.49 % LVEDV MOD BP: | | | 101.58 ml LVESV MOD BP: 44.19 ml LVEDV MOD A2C: 97.86 ml LVLd | | | A2C: 8.19 cm LVEDV MOD A4C: 99.30 ml LVLd A4C: 8.12 cm | | | LVESV MOD A2C: 38.44 ml LVLs A2C: 7.01 cm LVESV MOD A4C: | | | 50.99 ml LVLs A4C: 7.15 cm LAESV(A-L): 60.29 ml LAESV Index | | | (A-L): 26.79 ml/m2 LAAs A2C: 19.23 cm2 LAESV A-L A2C: 65.95 | | | ml LALs A2C: 4.76 cm LAAs A4C: 17.58 cm2 LAESV A-L A4C: | | | 46.83 ml LALs A4C: 5.60 cm RAAs: 14.50 cm2 RAESV A-L: | | | 36.15 ml RAESV MOD: 36.47 ml RALs: 4.94 cm Ao Diam: 3.94 | | | cm LA Diam: 4.88 cm LA/Ao: 1.23 AV maxP.93 mmHg AV | | | meanP.31 mmHg AV Vmax: 0.68 m/s AV Vmean: 0.55 m/s AV | | | VTI: 13.98 cm BRENDA Vmax: 4.57 cm2 BRENDA (VTI): 4.26 cm2 LVOT | | | maxP.61 mmHg LVOT meanP.93 mmHg LVSI Dopp: 26.47 | | | ml/m2 LVSV Dopp: 59.56 ml LVOT Vmax: 0.63 m/s LVOT Vmean: | | | 0.46 m/s LVOT VTI: 11.92 cm MV E Ruel: 0.71 m/s MV DecT: | | | 152.89 ms Septal e': 0.05 m/s Septal E/e': 13.23 PV maxPG: | | | 3.29 mmHg PV Vmax: 0.90 m/s Accounting Clerks Supervisor: GERMAN Authenticated | | | by: Luis Carlos Escobar DO Report Date/Time: -- [id number] | | + + + + + | Procedure Note | + + | [place], Rad Conversion - 02/05/2019 9:10 PM PDT Patient Name: Gabriela BUCHANAN | | : 1950 Performing Physician: Luis Carlos Escobar | | DO INDICATIONS a | | fib CONCLUSIONS 1. Atrial fibrillation. 2. LV dimensions and systolic function | | NML, diastolic function abnormal, Epes visually estimates LVEF 60-65%. Moderate LAE. | | RA/RV NML. 3. Aortic valve mildly sclerotic, trace AI, no . Mitral, Tricuspid, and | | Pulmonic valves grossly NML. Trace MR, trace TR, trace PI. 4. No Pericardial effusion. | | 5. IVC NML, inadequate TR to estimate PAP. 6. Aortic root 39mm, atherosclerosis present. | | FINDINGS--------ECG rhythm: Atrial fibrillation.Study: A 2-dimensional transthoracic | | echocardiogram with m-mode, spectral and color flow Doppler was perfomed.Study: This was | | a technically adequate study.Left Ventricle: Overall left ventricular systolic function | | is normal with, an EF between 60 - 65 %.Left Ventricle: The left ventricle cavity size | | is normal.Left Ventricle: Left ventricular wall thickness is normal.Left Ventricle: The | | diastolic filling pattern indicates impaired relaxation consistent with mild dysfunction | | (Grade I).Right Ventricle: The right ventricle is normal in size.Right Ventricle: The | | right ventricular systolic function is normal.Left Atrium: The left atrium is normal in | | size.Left Atrium: The left atrium is moderately dilated.Right Atrium: The right atrial | | size is normal.Aortic Valve: There is mild aortic valve sclerosis without | | stenosis.Aortic Valve: Trace amount of aortic regurgitation.Mitral Valve: The mitral | | valve is normal.Mitral Valve: There is trace mitral regurgitation.Mitral Valve: Mild | | mitral annular calcification present.Tricuspid Valve: The tricuspid valve appears | | structurally normal.Tricuspid Valve: Trace tricuspid regurgitation present.Tricuspid | | Valve: Pulmonary artery systolic pressure could not be assessed due to the absence of | | adequate TR jet.Pulmonic Valve: The pulmonic valve is normal.Pulmonic Valve: Trace | | pulmonic regurgitation.Pericardium: There is no pericardial effusion.IVC/Hepatic Veins: | | The IVC is normal size (1.5-2.5cm) and collapses >50% with sniff, consistent with | | central venous pressures of 5-10mmHg.Aorta: The aortic root is dilated measuring | | 3.9cm.Aorta: The aortic root is mildly calciifedMass: No mass visualizedThrombus: No | | clot visualizedSeptum: No ASD observed.Septum: No VSD observed. | | MEASUREMENTS Ao asc: 3.46 cmIVC: 2.37 cmEDV(Teich): 108.97 mlIVSd: | | 0.99 cmLVIDd: 4.82 cmLVPWd: 1.05 cmLVOT Area: 4.99 [id number] Diam: 2.52 cm%FS: | | 20.23 %EF(Teich): 41.31 %ESV(Teich): 63.95 mlLVIDs: 3.85 cmSV(Teich): 45.01 | | mlRVIDd: 3.33 cmLVEF MOD A2C: 60.71 %SV MOD A2C: 59.42 mlLVEF MOD A4C: 48.64 %SV | | MOD A4C: 48.31 mlEF Biplane: 56.49 %LVEDV MOD BP: 101.58 mlLVESV MOD BP: 44.19 | | mlLVEDV MOD A2C: 97.86 mlLVLd A2C: 8.19 cmLVEDV MOD A4C: 99.30 mlLVLd A4C: 8.12 | | cmLVESV MOD A2C: 38.44 mlLVLs A2C: 7.01 cmLVESV MOD A4C: 50.99 mlLVLs A4C: 7.15 | | cmLAESV(A-L): 60.29 mlLAESV Index (A-L): 26.79 ml/m2LAAs A2C: 19.23 [id number] A-L | | A2C: 65.95 mlLALs A2C: 4.76 cmLAAs A4C: 17.58 [id number] A-L A4C: 46.83 mlLALs | | A4C: 5.60 cmRAAs: 14.50 [id number] A-L: 36.15 mlRAESV MOD: 36.47 mlRALs: 4.94 | | cmAo Diam: 3.94 cmLA Diam: 4.88 cmLA/Ao: 1.23AV maxP.93 mmHgAV meanPG: | | 1.31 mmHgAV Vmax: 0.68 m/Ania Vmean: 0.55 m/Ania VTI: 13.98 cmAVA Vmax: 4.57 | | cm2AVA (VTI): 4.26 ma2BJEG maxP.61 mmHgLVOT meanP.93 mmHgLVSI Dopp: | | 26.47 ml/m2LVSV Dopp: 59.56 mlLVOT Vmax: 0.63 m/sLVOT Vmean: 0.46 m/sLVOT VTI: | | 11.92 cmMV E Ruel: 0.71 m/sMV DecT: 152.89 msSeptal e': 0.05 m/sSeptal E/e': | | 13.23PV maxP.29 mmHgPV Vmax: 0.90 m/s Accounting Clerks Supervisor: Ruthieted by: Luis Carlos | | Luz Valverde Date/Time: -- [id number] IMPRESSION: 1. Atrial fibrillation. | | 2. LV dimensions and systolic function NML, diastolic function abnormal, Epes visually | | estimates LVEF 60-65%. Moderate LAE. RA/RV NML. 3. Aortic valve mildly sclerotic, | | trace AI, no . Mitral, Tricuspid, and Pulmonic valves grossly NML. Trace MR, trace | | TR, trace PI. 4. No Pericardial effusion. 5. IVC NML, inadequate TR to estimate PAP. 6. | | Aortic root 39mm, atherosclerosis present. | |MEASUREMENTS | | | |Ao asc: 3.46 cm | |IVC: 2.37 cm | |EDV(Teich): 108.97 ml | |IVSd: 0.99 cm | |LVIDd: 4.82 cm | |LVPWd: 1.05 cm | |LVOT Area: 4.99 cm2 | |LVOT Diam: 2.52 cm | |%FS: 20.23 % | |EF(Teich): 41.31 % | |ESV(Teich): 63.95 ml | |LVIDs: 3.85 cm | |SV(Teich): 45.01 ml | |RVIDd: 3.33 cm | |LVEF MOD A2C: 60.71 % | |SV MOD A2C: 59.42 ml | |LVEF MOD A4C: 48.64 % | |SV MOD A4C: 48.31 ml | |EF Biplane: 56.49 % | |LVEDV MOD BP: 101.58 ml | |LVESV MOD BP: 44.19 ml | |LVEDV MOD A2C: 97.86 ml | |LVLd A2C: 8.19 cm | |LVEDV MOD A4C: 99.30 ml | |LVLd A4C: 8.12 cm | |LVESV MOD A2C: 38.44 ml | |LVLs A2C: 7.01 cm | |LVESV MOD A4C: 50.99 ml | |LVLs A4C: 7.15 cm | |LAESV(A-L): 60.29 ml | |LAESV Index (A-L): 26.79 ml/m2 | |LAAs A2C: 19.23 cm2 | |LAESV A-L A2C: 65.95 ml | |LALs A2C: 4.76 cm | |LAAs A4C: 17.58 cm2 | |LAESV A-L A4C: 46.83 ml | |LALs A4C: 5.60 cm | |RAAs: 14.50 cm2 | |RAESV A-L: 36.15 ml | |RAESV MOD: 36.47 ml | |RALs: 4.94 cm | |Ao Diam: 3.94 cm | |LA Diam: 4.88 cm | |LA/Ao: 1.23 | |AV maxP.93 mmHg | |AV meanP.31 mmHg | |AV Vmax: 0.68 m/s | |AV Vmean: 0.55 m/s | |AV VTI: 13.98 cm | |BRENDA Vmax: 4.57 cm2 | |BRENDA (VTI): 4.26 cm2 | |LVOT maxP.61 mmHg | |LVOT meanP.93 mmHg | |LVSI Dopp: 26.47 ml/m2 | |LVSV Dopp: 59.56 ml | |LVOT Vmax: 0.63 m/s | |LVOT Vmean: 0.46 m/s | |LVOT VTI: 11.92 cm | |MV E Ruel: 0.71 m/s | |MV DecT: 152.89 ms | |Septal e': 0.05 m/s | |Septal E/e': 13.23 | |PV maxP.29 mmHg | |PV Vmax: 0.90 m/s | | | |Accounting Clerks Supervisor: GERMAN | |Authenticated by: Luis Carlos Escobar DO | |Report Date/Time: [id number] | | | |IMPRESSION: | |1. Atrial fibrillation. 2. LV dimensions and systolic function NML, diastolic function abno rmal, Epes visually estimates LVEF 60-65%. Moderate LAE. RA/RV NML. 3. Aortic valve mild ly sclerotic, trace AI, no | |. Mitral, Tricuspid, and Pulmonic valves | |grossly NML. Trace MR, trace TR, trace PI. 4. No Pericardial effusion. 5. IVC NML, inadequ ate TR to estimate PAP. 6. Aortic root 39mm, atherosclerosis present. | + + documented in this encounter Visit Diagnoses Not on filedocumented in this encounter"
--- OUTSIDE RECORDS SUMMARY | ~2019-12-14 | XMS | Encounter Summary ---
Demographics + + + | Address | [address] | | | [place] [address] | + + + | Home Phone | | + + + | Preferred Language | Unknown | + + + | Marital Status | | + + + | Latter Day Affiliation | Unknown | + + + [...] Team Providers + +------+ + | Care Geothermal Plant Manager Name | Role | Phone | + +------+ + | Tereza Turner MD | PCP | | + +------+ + Encounter Details +--------+ + + + + | Date | Type | Department | Care Team | Description | +--------+ + + + + | 08/12/ | Orders Only | [facility] | Conversion | | | 2018 | | CONVERSION DEP [address] | Transaction, | | | | | [address] | Provider Unknown | | | | | [place], [place] | [phone] | | | | | [address] | | | | | | [phone] | | | +--------+ + + + [...] CONCEPCION | | | | | | [address] | | | | | | | | +--------+---------+ + + + documented as of this encounter Visit Diagnoses Not on filedocumented in this encounter"
--- OUTSIDE RECORDS SUMMARY | ~2019-12-14 | XMS | Encounter Summary ---
Demographics + + + | Address | [address] | | | [place] [address] | + + + | Home Phone | | + + + | Preferred Language | Unknown | + + + | Marital Status | Single | + + + | Bahai Affiliation | Unknown | + + + [...] Team Providers + +------+ + | Care Nuclear Logging Engineer Name | Role | Phone | + +------+ + PCP | Unavailable | + +------+ + Encounter Details +--------+ + + + + | Date | Type | Department | Care Team | Description | +--------+ + + + + | 02/14/ | Results | Registration [address] | Other, Faculty | | | 2006 | Only | HELENA Hurtado | [phone] | | | | | Rd Mailcode: [id number] | | | | | | [place] | | | | | | [address] | | | | | | [phone] | | | +--------+ + + + [...] | | | | | MNT) | [address] CLINICAL | | | | | | [...] LAURA | [address] | [place] [address] | | | DERMATOPATHOLOGY | [address] | | | + + + + + documented in this encounter Visit Diagnoses Not on filedocumented in this encounter"
--- OUTSIDE RECORDS SUMMARY | ~2019-12-14 | XMS | Encounter Summary ---
Demographics + + + | Address | [address] | | | [place] [address] | + + + | Home Phone | | + + + | Preferred Language | Unknown | + + + | Marital Status | | + + + | Sabianism Affiliation | Unknown | + + + | Race | Unknown | + + + | Ethnic Group | Unknown | + + + Author + + + | Author | [facility] | | | and [place] | + + + | Organization | [facility] | | | and [place] | + + + | Address | Unknown | + + + | Phone | Unavailable | + + + Support + + +---------+ + | Name | Relationship | Address | Phone | + + +---------+ + | Yary Solis | ECON | Unknown | | + + +---------+ + | Shwethasamantha Rhoades | ECON | Unknown | | + + +---------+ + Care Team Providers + +------+ + | Care Hoist Worker Name | Role | Phone | + +------+ + PCP | Unavailable | + +------+ + Encounter Details +--------+ + + + + | Date | Type | Department | Care Team | Description | +--------+ + + + + | 08/27/ | Hospital | [facility] | Shelton Godd[place], | | | 2007 | Encounter | MED CTR XRAY [address] | [address] [facility] | | | | | [place] | [place], [place] | | | | | [place] [address] | [address] | | | | | [phone] | | | +--------+ + + + [...] CONCEPCION | | | | | | [address] | | | | | | | | +--------+---------+ + + + documented as of this encounter Visit Diagnoses Not on filedocumented in this encounter"
[~2019-12-14 16:34] MED LIST: ASPIRIN EC81 MG PO; CYCLOBENZAPRINE10 MG PO; FLAX SEED OIL1000 MG PO; FLECAINIDE ACE100 MG PO; FLOMAX0.4 MG PO; LANSOPRAZOLE30 MG PO; LIPITOR20 MG PO; LISINOPRIL20 MG PO; MELOXICAM15 MG PO; METOPROLOL SUC100 MG PO; METOPROLOL SUCC25 MG PO; OMEPRAZOLE20 MG PO; SAW PALMETTO160 MG PO; VITAMIN D32000 UNI1 PO; ZANTAC150 MG PO
== END 2019-12-14 17:01 | disposition home or self-care (01) ==
LOC: ED 16:34
DX: S81.812A Laceration without foreign body, left lower leg, initial encounter (principal); X58.XXXA Exposure to other specified factors, initial encounter

== ENCOUNTER 2020-12-09 07:50 | Day surgery (SDC) | payer MEDICARE, BC ==
[~2020-12-09] VITALS: Ht 188 cm; Wt 97.0 kg
[~2020-12-09 07:50] MED LIST changes: +ATORVASTATIN CA20 MG PO; +DIOVAN80 MG PO; +FLONASE ALLERG9.9 ML; +OSTERA TABLET1 EACH PO
--- NOTE | 2020-12-09 11:38 | NUR ---
12/09/20 1138 Roseanna Chacko 1130- PT ARRIVES TO PACU AROUSABLE TO NOXIOUS STIMULI. RESP EVEN AND UNLABORED. OXYGEN SAT HIGH 90'S TO 100% ON 10L VIA MASK. 1135- PT EASILY AROUSABLE TO VOICE. PT GIVES THUMBS UP WHEN ASKED IF HE IS FEELING OKAY. 1136- OXYGEN TITRATED DOWN TO 6L VIA MASK.
[2020-12-09] MEDS ORDERED: OXYCODONE HCL10 MG PO (12:24)
--- NOTE | 2020-12-09 13:19 | NUR ---
1100 AMB TO BR, VOIDS QS. WANTS TO GET DRESSED And called to pick him up. 1110 reviewed instructions with also.
--- NOTE | 2020-12-10 06:45 | OR ---
[facility] [address] [place], [place] [address] Signed DATE OF OPERATION: 12/09/2020 SURGEON: Linwood Riggins MD PREOPERATIVE DIAGNOSES: 1. Umbilical hernia (10 mm). 2. Recurrent right inguinal hernia. POSTOPERATIVE DIAGNOSES: 1. Umbilical hernia (10 mm). 2. Recurrent right inguinal hernia. 3. Recurrent right direct inguinal hernia. PROCEDURES: 1. Primary umbilical herniorrhaphy with intraabdominal Ventralex mesh (4.3 cm). 2. Right Lesley onlay mesh inguinal herniorrhaphy. ESTIMATED BLOOD LOSS: None. INDICATIONS: Soo is a 70-year-old gentleman, who was asked to see me for not only an umbilical hernia, but recurrent right inguinal hernia. He had undergone a radical robotic laparoscopic prostatectomy. Bilateral inguinal hernia repairs were undertaken at that time. He had mesh placed on both sides and held with tacks. The op report says the right side was [id number] and the left was small. In the office, he clearly had an umbilical hernia along with a recurrent right inguinal hernia. I gave Soo our pamphlets on hernias. We looked at those together in detail. He understands the difference between the primary suture repair and a mesh repair. We did review the risks including, but not limited to bleeding, infection, scarring, change in contour of the skin, damage to the nerves, ischemic orchitis, recurrent hernias, chronic pain, and infected mesh requiring removal. He expressed understanding and wished to proceed. DESCRIPTION OF PROCEDURE: I met with Soo in our preop area. We both agreed on the umbilicus in the right groin. They were marked appropriately. After this, Soo was taken in the operating room and placed in supine position under general endotracheal tube anesthesia. He was given preoperative antibiotics along with subcutaneous heparin. SCDs were utilized. He was then prepped and draped in the usual sterile fashion. We used a standard supraumbilical transverse incision, carried that down around the umbilicus bluntly and Electronically Signed By: LINWOOD RIGGINS MD 12/10/20 0645 PATIENT NAME: SOO BUCHANAN OPERATIVE REPORT DATE OF : 52 REPORT #: [id number] PHYSICIAN: LINWOOD RIGGINS MD PCP: ANDRZEJ JHA MD REPORT IS CONFIDENTIAL AND NOT TO BE RELEASED WITHOUT AUTHORIZATION [facility] [address] [place] [id number] Signed with the cautery. The defect was from the hernia sac with the help of cautery. The fat was reduced and the fascial defect was found to be about 10 mm in diameter. We therefore, chose our 4.3 cm round Ventralex mesh. We placed it into the abdominal cavity and brought up, flushed against posterior abdominal wall. We closed the fascial defect transversely with a running #1 Prolene suture. Several passes of the suture went through the tab on the mesh to help hold it in place. The tab on the mesh was then cut flush with the abdominal wall. The abdominal wound was irrigated and suctioned out until clear. Local anesthetic was injected in the abdominal wall and subcutaneous tissues. The umbilical skin was held back down to the midline fascia with an interrupted 2-0 PDS suture. The dermis was reapproximated with interrupted 3-0 subcuticular Monocryl sutures. The skin edges were reapproximated with a running 5-0 fast absorbing plain gut suture. After this, we turned our attention to the right groin. We developed a standard oblique incision in the right groin and carried it down through the tissue bluntly and with the cautery. External oblique fascia was opened along its length and developed medially laterally. In due time, we had to sacrifice a very thin and attenuated ilioinguinal nerve. We elevated the cord structures at the level of pubic tubercle. We found that he did have a moderately large direct inguinal hernia. With palpation, I could feel the mesh and slid inferiorly and he was simply herniating over top of the edge of the mesh. He had a very small cord lipoma on the anteromedial side at the level of deep ring. That was bluntly dissected free, amputated with the cautery and passed off the field. We then reduced the hernia in the direct space and we brought it together with a running 2-0 PDS, starting at the pubic tubercle, running up to the level of deep ring. I held the hernia down and out of the way. It took a little extra time as we could reduce this far as we normally would, based on the prior place of the mesh. After this, we used flat Prolene mesh was cut to fit his groin and a slit was made in the mesh to accommodate the cord structures at the level of deep ring. It was held in place medially and laterally with help of running #1 Prolene suture. This gave excellent coverage of direct and indirect spaces. We then injected local anesthetic into the wound and subcutaneous tissues. The wound was irrigated and suctioned out until clear. We closed the external oblique over the repair with a running 2-0 PDS suture. Tyson's fascia was reapproximated with a running 3-0 Monocryl suture. The dermis was reapproximated with interrupted 3-0 subcuticular Monocryl sutures. The skin edges were reapproximated with a running 5-0 fast absorbing plain gut suture. Dry gauze and tape were then applied. After this, Soo was awakened from his anesthesia, extubated in the OR, and taken to recovery room in stable condition. Linwood Riggins MD Electronically Signed By: LINWOOD RIGGINS MD 12/10/20 0645 PATIENT NAME: SOO BUCHANAN OPERATIVE REPORT DATE OF : 52 REPORT #: [id number] PHYSICIAN: LINWOOD RIGGINS MD PCP: ANDRZEJ JHA MD REPORT IS CONFIDENTIAL AND NOT TO BE RELEASED WITHOUT AUTHORIZATION [address] [address] Signed [facility] /[id number] cc: MD Linwood Simon MD Copies: LINWOOD RIGGINS MD ~ Electronically Signed By: LINWOOD RIGGINS MD 12/10/20 0645 PATIENT NAME: SOO BUCHANAN EDWARD OPERATIVE REPORT DATE OF : 52 REPORT #: [id number] PHYSICIAN: LINWOOD RIGGINS MD PCP: ANDRZEJ JHA MD REPORT IS CONFIDENTIAL AND NOT TO BE RELEASED WITHOUT AUTHORIZATION
== END 2020-12-09 13:10 | disposition home or self-care (01) ==
LOC: DS 07:50
PROVIDERS: ATTEND Colon & Rectal Surgery
PROC: 0WUF0JZ Supplement Abdominal Wall with Synthetic Substitute, Open Approach (ICD-10-PCS; principal; 2020-12-09 08:45)
PROC: 0YU50JZ Supplement Right Inguinal Region with Synthetic Substitute, Open Approach (ICD-10-PCS; 2020-12-09 08:45)
DX: K42.9 Umbilical hernia without obstruction or gangrene (principal); K40.91 Unilateral inguinal hernia, without obstruction or gangrene, recurrent; I10 Essential (primary) hypertension; Z88.8 Allergy status to other drugs, medicaments and biological substances
CPT/HCPCS: 00830; C1781; J0330; J0690; J1100; J1644; J1885; J2250; J2405; J2704; J2765; J3010; J7121

== ENCOUNTER 2022-05-04 11:41 | Emergency (ER) | payer MEDICARE, BC ==
[~2022-05-04] VITALS: Ht 188 cm; Wt 96.6 kg
[~2022-05-04 11:41] MED LIST changes: +OXYCODONE HCL10 MG PO
[2022-05-04] MEDS ORDERED: ELIQUIS5 MG PO (12:38)
[2022-05-04] MEDS ORDERED: VALSARTAN160 MG PO (12:38)
[2022-05-04] MEDS ORDERED: MELOXICAM7.5 MG PO (12:39)
--- NOTE | 2022-05-05 13:58 | EKG ---
[facility] [address] [place] [address] Signed Sinus bradycardia Left axis deviation Right bundle branch block Abnormal ECG No previous ECGs available Confirmed by ARABELLA COURTNEY MD ([id number]) on 05/05/2022 1:58:03 PM Electronically Signed By: ARABELLA COURTNEY MD 05/05/22 1358 PATIENT NAME: SOO BUCHANAN Electrocardiogram DATE OF : 52 PHYSICIAN: ARABELLA COURTNEY MD REPORT #: [id number] REPORT IS CONFIDENTIAL AND NOT TO BE RELEASED WITHOUT AUTHORIZATION
== END 2022-05-04 16:34 | disposition home or self-care (01) ==
LOC: ED 11:41
DX: R07.9 Chest pain, unspecified (principal); K76.9 Liver disease, unspecified; I10 Essential (primary) hypertension; I48.0 Paroxysmal atrial fibrillation; Z88.8 Allergy status to other drugs, medicaments and biological substances; Z79.899 Other long term (current) drug therapy
CPT/HCPCS: 36415; 71275; 74174; 80053; 84484; 85025; 93005; 93010; 99285-25; Q9967

== ENCOUNTER 2023-12-12 05:55 | Day surgery (SDC) | payer MEDICARE, BC ==
[~2023-12-12] VITALS: Ht 188 cm; Wt 93.0 kg
[~2023-12-12 05:55] MED LIST changes: +ELIQUIS5 MG PO; +FLONASE ALLERG9.9 ML NAS; +GLYCOTROL CAPS1 EACH PO; +MELOXICAM7.5 MG PO; +MIDAZOLAM HCL 5 MG/5 ML VIAL IV PRN; +VALSARTAN160 MG PO; +ZANTAC-360 (FAM20 MG PO; +fentaNYL citrate 100 MCG/2 ML VIAL IV PRN
[2023-12-12 06:14] VITALS: BP 136/80
--- NOTE | 2023-12-12 06:32 | NUR ---
NO ONE WAITING. TO BE CALLED. HAS HAD PROCEDURE BEFORE.
[2023-12-12] MEDS ORDERED: IBLOOD GLUCOSE TEST STRIP 1 EA TEST VI PRN (07:00)
[2023-12-12] MEDS ORDERED: LACTATED RINGER'S 1,000 ML IV SCH (07:00)
[2023-12-12] MEDS ORDERED: CEFAZOLIN SODIUM 2 GM/20 ML SYR IV SCH (07:00)
[2023-12-12] MEDS ORDERED: LIDOCAINE HCL 1% 5 ML SDV INJ ONE (07:00)
[2023-12-12] MEDS ORDERED: propofoL 200 MG/20 ML VIAL ONE ×3 (07:08→08:26)
[2023-12-12] MEDS ORDERED: LIDOCAINE HCL 2% 5 ML SDV ONE (07:08)
--- NOTE | 2023-12-12 07:54 | NUR ---
0715 Patient was friendly. Expressed a little anxiety regarding procedure. Offer of comforting words and encouragement appreciated. Thanked me for stopping by.
--- NOTE | 2023-12-12 08:43 | NUR ---
12/12/23 0843 Queenie France 0837-PT TO PACU IN LL POSITION. EYES CLOSED. DOES NOT RESPOND TO VERBAL TO TACTILE STIMULI. BREATHING EASY AND UNLABORED. SPO2 >95% ON 6 L O2 VIA SIMPLE MASK 0842-PT REACTS TO VERBAL AND TACTILE STIMULI. REPOSITIONS UPPER EXTREMITIES. DOES NOT OPEN EYES OR FOLLOW COMMANDS. BREATHING EASY AND UNLABORED. SPO2 >95% ON 6 L O2 VIA SIMPLE MASK.
[2023-12-12 09:55] VITALS: BP 129/74
--- NOTE | 2023-12-12 10:26 | OR ---
[facility] [address] [place], [place] [address] Signed DATE OF OPERATION: 12/12/2023 SURGEON: Linwood Rigigns MD PREOPERATIVE DIAGNOSES: 1. 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 2. Personal history of colonic polyps. POSTOPERATIVE DIAGNOSES: 1. Prominent ileocecal valve. 2. A 12 mm pedunculated polyp at 15 cm (rectosigmoid junction, left-anterior, snare, tattoo). PROCEDURES: 1. Colonoscopy with cold biopsies x4 of the ileocecal valve and snare polypectomy and injection of tattoo at 15 cm. 2. Rigid proctoscopy. ESTIMATED BLOOD LOSS: Minimal. INDICATIONS: Soo is a 73-year-old gentleman, asked to return for a repeat colonoscopy. We just went through this in August. He has a rather significant prominent ileocecal valve. I explained to Soo this is actually quite common. However, we took some biopsies of that area and the pathologist was concerned about some adenomatous tissue. We felt like he should come back on a short interval to re-evaluate that area and have multiple biopsies of this ileocecal valve. He is always quite vigilant with his health and he thought that would be a good idea. He is very familiar with the bowel prep. He is very familiar with colonoscopy. He knows there is risk including, but not limited to gas bloating, crampy abdominal pain, bleeding, perforation requiring surgery, and missed diagnosis. We always used monitored anesthesia care for Soo given his past medical history including his heart and his significant sleep apnea. He had expressed understanding and wished to proceed. DESCRIPTION OF PROCEDURE: Soo was taken into our endoscopy suite and placed in the left lateral decubitus position. He was given monitored anesthesia care with propofol infusion per our nurse mirror department supervisor. He did receive some antibiotics because of his knee replacement. A digital rectal exam was performed. He had good sphincter tone. No external Electronically Signed By: LINWOOD RIGGINS MD 12/12/23 1026 PATIENT NAME: SOO BUCHANAN OPERATIVE REPORT DATE OF : 52 REPORT #: [id number] PHYSICIAN: LINWOOD RIGGINS MD PCP: ANDRZEJ JHA MD REPORT IS CONFIDENTIAL AND NOT TO BE RELEASED WITHOUT AUTHORIZATION [facility] [address] [place], [place] [address] Signed hemorrhoids. No masses. The prostate is absent. The adult colonoscope was introduced and advanced under direct visualization of the camera. It took some extra sedation and some abdominal compression to get the scope right down into the cecum itself. Once again, he has a very prominent circular ileocecal valve. It actually looks quite healthy. We went ahead and took four circumferential cold biopsies of the ileocecal valve for pathologic review. We took multiple pictures throughout for photodocumentation. The scope was then slowly withdrawn. On this occasion, we found a 12 mm pedunculated polyp on the inner curve of the rectosigmoid junction. Because of the difficult angle, it took two bites of the snare to get it removed completely. We suctioned one onto the scope and other one into the canister and both were sent off to the lab. We went back and looked at this area and we felt that the entire polyp was removed. We went ahead and injected a tattoo at the base of the polyp. Again, several pictures were taken for photodocumentation. We inserted the rigid proctoscope and it took just a minute and we can see his tattoo in the polypectomy site is left and anterior at about 15 cm or so from the anal verge. After this, the flexible scope had been retroflexed in his rectum. We did not see any pathology above the anal canal. After this, the rigid proctoscope was opened and the gas was allowed to escape and the rigid proctoscope was withdrawn. RECOMMENDATIONS: Soo will follow up my office in 7 to 14 days to review his results. Again, he might consider a short interval particularly with respect to the ileocecal valve. Linwood Riggins MD [facility] /[id number] cc: MD Linwood Simon MD Electronically Signed By: LINWOOD RIGGINS MD 12/12/23 1026 PATIENT NAME: SOO BUCHANAN OPERATIVE REPORT DATE OF : 52 REPORT #: [id number] PHYSICIAN: LINWOOD RIGGINS MD PCP: ANDRZEJ JHA MD REPORT IS CONFIDENTIAL AND NOT TO BE RELEASED WITHOUT AUTHORIZATION [address] [address] Signed Copies: LINWOOD RIGGINS MD ~ Electronically Signed By: LINWOOD RIGGINS MD 12/12/23 1026 PATIENT NAME: SOO BUCHANAN OPERATIVE REPORT DATE OF : 52 REPORT #: [id number] PHYSICIAN: LINWOOD RIGGINS MD PCP: ANDRZEJ JHA MD REPORT IS CONFIDENTIAL AND NOT TO BE RELEASED WITHOUT AUTHORIZATION
--- NOTE | 2023-12-17 17:01 | PATH ---
[facility] [address] [place], [place] [address] Signed SPECIMEN(S): A ILEOCECAL VALVE BIOPSY SPECIMEN(S): B RECTOSIGMOID POLYP, 20 CM SPECIMEN SOURCE: A. ILEOCECAL VALVE BIOPSY B. RECTOSIGMOID POLYP, 20 CM CLINICAL HISTORY: History of polyps, adenomatous tissue - ileocecal valve. A) Prominent ICV. B) Polyp FINAL PATHOLOGIC DIAGNOSIS: A. Ileocecal valve, biopsy: - Small bowel mucosa with no significant pathologic changes B. Colon, rectosigmoid, 20 cm, polypectomy: - Tubular adenoma BRP MICROSCOPIC EXAMINATION: Histologic sections of all submitted blocks are examined by light microscopy. These findings, together with the gross examination, support the pathologic diagnosis. GROSS DESCRIPTION: A. The specimen, labeled and designated "Will, ileocecal valve biopsy," is received in formalin and consists of four vela soft tissue fragments, ranging from 0.3-0.4 cm. Entirely submitted in (A1). B. The specimen, labeled and designated "[place], rectosigmoid polyp, 20 cm," is received in formalin and consists of eight fragments of vela soft tissue (0.1-0.6 cm in greatest dimension), and a fragment of vela-brown polypoid tissue (1.0 x 0.9 x 0.6 cm). The possible resection margin of the polypoid tissue is inked blue, and the tissue is bisected to reveal vela soft cut surfaces. The specimen is submitted entirely in cassette (B1). VB (under the direct supervision of a pathologist) The Gross Description was prepared using a voice recognition system. The report was reviewed for accuracy; however, sound-alike word errors, addition and/or deletions may occur. If there is any question about this report, please contact Client Services. ADDITIONAL NOTES: PATIENT NAME: SOO BUCHANAN PATHOLOGY DATE OF : 52 REPORT #: [id number] PHYSICIAN: KANU AGARWAL PCP: ANDRZEJ JHA MD REPORT IS CONFIDENTIAL AND NOT TO BE RELEASED WITHOUT AUTHORIZATION [facility] [address] [facility] [place], [place] [address] Signed Immunohistochemical and/or in situ hybridization studies if performed in this case included appropriate positive controls that reacted as expected. This test was developed and its performance characteristics determined by [facility]. It has not been cleared or approved by the U.S. Food and Drug Administration. The FDA has determined that such clearance or approval is not necessary. This test is used for clinical purposes. It should not be regarded as investigational or for research. [facility] is certified under the Clinical Laboratory Improvement Amendments of 1988 (CLIA) as qualified to perform high complexity clinical laboratory testing. PERFORMING LABORATORY: Technical component was performed by [facility], [address] [place] [id number] (CLIA# [id number]). Professional interpretation was performed by [facility] [address] [place] [phone] [id number] Diagnostician: Avni Acuña MD Pathologist Electronically Signed 12/17/2023 Copies: ~ PATIENT NAME: SOO BUCHANAN PATHOLOGY DATE OF : 52 REPORT #: [id number] PHYSICIAN: KANU PATHOLOGY PCP: ANDRZEJ JHA MD REPORT IS CONFIDENTIAL AND NOT TO BE RELEASED WITHOUT AUTHORIZATION
== END 2023-12-12 10:00 | disposition home or self-care (01) ==
LOC: DS 05:55
PROVIDERS: ATTEND Colon & Rectal Surgery
PROC: 0DBE8ZX Excision of Large Intestine, Via Natural or Artificial Opening Endoscopic, Diagnostic (ICD-10-PCS; principal; 2023-12-12 07:30)
DX: Z12.11 Encounter for screening for malignant neoplasm of colon (principal); D12.7 Benign neoplasm of rectosigmoid junction; Z86.010 Personal history of colon polyps; I10 Essential (primary) hypertension; K21.00 Gastro-esophageal reflux disease with esophagitis, without bleeding; K64.8 Other hemorrhoids; K44.9 Diaphragmatic hernia without obstruction or gangrene; K22.70 Barrett's esophagus without dysplasia; I44.0 Atrioventricular block, first degree; I48.0 Paroxysmal atrial fibrillation; G47.30 Sleep apnea, unspecified; E78.5 Hyperlipidemia, unspecified; I48.91 Unspecified atrial fibrillation; Z88.8 Allergy status to other drugs, medicaments and biological substances; Z79.01 Long term (current) use of anticoagulants; Z79.899 Other long term (current) drug therapy
CPT/HCPCS: 00811; 88305; J0690; J2001; J2704; J7121